=== PATIENT | male | born 1955 | race Caucasian/White ===

== ENCOUNTER 2025-04-22 13:31 | Emergency (ER) | payer MEDICARE, SELFPAY ==
[2025-04-22] VITALS (10 sets, daily range): BP systolic 128–141; BP diastolic 71–97; PULSE 64–72; RESP 11–20; TEMP 36.6–36.8; O2SAT 97–100
--- NOTE | ~2025-04-22 | CT_ITS ---
EXAMINATION: CTA BRAIN/CAROTID DATE: 04/22/2025 15:08 INDICATION: Vertigo TECHNIQUE: Computed tomographic angiography (CTA) of the head and neck was performed with 100 mL Omni paque-350 intravenous contrast. Multiplanar reconstructions and maximum intensity projection 3D-recon structions of the carotid arteries and of the intracranial arteries were created by the technologist on a separate workstation. Precontrast CT of the head was also obtained. Automated exposure control and iterative reconstruction technique were employed.The dose-length product was 2020.75 mGy-cm. COMPARISON: None. FINDINGS: Carotid arteries: Thoracic aorta is normal in caliber with no dissection. Right vertebral artery is dominant. There is no evident atherosclerotic plaque with 0% stenosis of the right and left carotid bulbs relative to no rmal distal artery lumen diameter (NASCET criteria). Mild atelectasis in the visualized upper lungs l ikely related to expiratory phase of imaging. Severe lumbar spondylosis. Head: No acute intracranial hemorrhage, acute infarction or abnormal extra axial fluid collection. There is mild scattered white matter hypoattenuation consistent with chronic small vessel ischemic disease. S ymmetric prominence of the sulci consistent with mild age-appropriate diffuse cerebral volume loss. N o mass/mass effect. No abnormally enhancing brain lesions on the post contrast images. Ventricles are normal and symmetric. Changes of bilateral intraocular lens replacement. The orbits and mastoid air cells are normal. Scattered mild mucosal thickening the paranasal sinuses. Intracranial arteries Right vertebral artery is dominant. There is no hemodynamically significant stenosis in the vertebral , basilar and internal carotid arteries. Both A1 and P1 segments are patent. There are no aneurysms identified. Cerebral arterial arborization appears symmetric. IMPRESSION: 1. No atherosclerotic plaque with 0% stenosis of the right left carotid bulbs relative to normal dist al artery lumen diameter (NASCET criteria). 2. Normal aging brain with mild diffuse volume loss and mild scattered white matter hypoattenuation c onsistent with chronic small vessel ischemic disease. No acute intracranial process. 3. Unremarkable cerebral CT angiogram with no hemodynamic significant stenosis, thrombosis or aneurys m. Reviewed, dictated and finalized at location B. IMPRESSION: 1. No atherosclerotic plaque with 0% stenosis of the right left carotid bulbs r elative to normal distal artery lumen diameter (NASCET criteria). 2. Normal aging brain with mild diffuse volume loss and mild scattered white ma tter hypoattenuation consistent with chronic small vessel ischemic disease. No acute intracranial process. 3. Unremarkable cerebral CT angiogram with no hemodynamic significant stenosis, thrombosis or aneurysm.
--- NOTE | 2025-04-22 14:09 | ECG_ITS ---
Test Date: 2025-04-22 14:44:33 Measurements Intervals [place] Rate: 66 P: 57 NE: 160 QRS: -22 QRSD: 105 T: 10 QT: 437 QTc: 460 Interpretive Statements SINUS RHYTHM INCOMPLETE RIGHT BUNDLE BRANCH BLOCK INFERIOR INFARCT, AGE INDETERMINATE BASELINE ARTIFACT- I, III, AVR, AVL ABNORMAL ECG No previous ECG available for comparison Electronically Signed On 04-22-2025 16:55:19 CDT by Prasanth Torres D.O.
[2025-04-22 14:27] LABS: Basophils Percent Auto 0.4 % (0.2-1.2); Eosinophils Percent Auto 0.6 % (0-4.4); Hematocrit 49.1 % (42.0-52.0); Hemoglobin 16.3 g/dL (14.0-18.0); Immature Granulocyte Absolute 0.05 K/mm3 (0.00-0.031); Immature Granulocyte Percent A 0.7 % (0-0.5); Lymphocytes Absolute Auto 0.96 K/mm3 (0.9-3.2); Lymphocytes Percent Auto 13.4 % (18.3-44.2); Mean Corpuscular HGB Conc 33.2 g/dl (32-36); Mean Corpuscular Hemoglobin 27.6 pg (26-34); Mean Corpuscular Volume 83.1 fl (80-100); Mean Platelet Volume 9.9 fl (7.4-10.4); Monocytes Absolute Auto 0.4 K/mm3 (0.1-0.6); Monocytes Percent Auto 6.1 % (2.6-8.5); Neutrophils Absolute Auto 5.7 K/mm3 (1.3-6.7); Neutrophils Percent Auto 78.8 % (45.5-73.1); Platelet Count Result 153 k/mm3 (150-375); Red Blood Count 5.91 M/mm3 (4.6-6.20); Red Cell Distribution Width 13.5 % (11.5-14.5); White Blood Count 7.2 K/mm3 (4.5-10.0)
[2025-04-22 14:29] LABS: Add Urine Microscopic? NO; Appearance Urine Clear (Clear); Bilirubin Urine Negative (Negative); Blood Urine Negative (Negative); Color Urine Yellow (Yellow); Glucose Urine UA Negative (Negative); Ketones Urine Negative (Negative); Leukocyte Esterase Ur Negative LEU/UL (Negative); Nitrate Urine Negative (Negative); Protein Urine Negative (Negative); Specific Grav Ur 1.018 (1.001-1.035); Urobilinogen Urine 0.2 mg/dL (<2.0); pH Urine 7.5 (5.0-9.0)
[2025-04-22 14:39] LABS: Alanine Aminotransferase 28 U/L (6-50); Albumin Level 4.4 g/dL (3.5-5.1); Alkaline Phosphatase 95 U/L (38-126); Anion Gap 11 mmol/L (4-12); Aspartate Amino Transferase 23 U/L (17-59); Bilirubin,Total 0.8 mg/dL (0.2-1.3); Blood Urea Nitrogen 23 mg/dL (9-20); Calcium 9.4 mg/dL (8.4-10.2); Carbon Dioxide 24 mmol/L (22-30); Chloride 103 mmol/L (98-107); Estimated CRCL calculation 91 ml/min; Estimated Glomerular Filt Rate > 60; Glucose 168 mg/dL (65-110); Lipase 31 U/L (23-300); Potassium 4.8 mmol/L (3.4-5.0); Sodium 138 mmol/L (137-145); Total Protein 7.4 g/dL (6.3-8.2)
[2025-04-22] MEDS: SODIUM CHLORIDE 0.9% IV 1,000 ML 999 ML IV CONT (15:25)
[2025-04-22] MEDS: MECLIZINE HCL 25 MG TABLET PO (15:25)
[2025-04-22 15:31] LABS: Lactic Acid Reflex 1.3 mmol/L (0.7-2.0)
--- OUTSIDE RECORDS SUMMARY | 2025-04-22 15:34 | XMS_ITS | Clinical Summary ---
Author Organization [facility] [address] Address [address] [place] [id number] Care Team Providers Care Human Services Professional Name Role Phone Carlos Hinojosa MD Primary Care Provider Jj Scott MD Unavailable [phone] Cristi Cantu OD Unavailable Marlene Freitas OD Unavailable [phone] Thomas Redman MD Unavailable Allergies Active Allergy Reactions Criticality Noted Date Comments Levofloxacin Pollen Extracts Eye irritation Low 12/29/[address] [facility] For home blood glucose monitoring, 1-3 times per day. E11.65 200 each 3 2 Active peg 400-propylene glycol, PF, 0.4-0.3 % drops Administer into affected eye(s) Active TechLITE Pen Needle 29 gauge x 1/2 needle USE TO INJECT INSULIN 1 TO 4 TIMES DAILY DIRECTED 3 Active blood glucose diagnostic (glucose blood) stripIndications: Type II or unspecified type diabetes mellitus with renal manifestations, uncontrolled(250. 42) ([facility]) For use with blood glucose monitoring, 1-3 times per day. E11.65 200 each 11 3 Active albuterol HFA (Proventil HFA) 90 mcg/actuation inhalerIndication s:Moderate persistent asthma without complication Inhale 2 puffs every 4 (four) hours as needed for wheezing or shortness of breath 6.73 each 4 3 Active escitalopram (LEXAPRO) 20 mg tabletIndications :Major depressive disorder, recurrent, mild Take 1 tablet (20 mg total) by mouth daily 90 tablet 3 4 Active gabapentin (NEURONTIN) 300 mg capsuleIndication s:Spondylosis of lumbar region without myelopathy or radiculopathy Take 1 capsule (300 mg total) by mouth nightly as needed (pain) 30 capsule 1 4 Active atorvastatin (LIPITOR) 40 mg tabletIndications :Type II or unspecified type diabetes mellitus with renal manifestations, uncontrolled(250. 42) (HCC) Take 2 tablets (80 mg total) by mouth daily 180 tablet 5 Active insulin degludec (TRESIBA) 200 unit/mL (3 mL) pen for injection Inject 0.08 mL (16 Units total) under the skin 2 (two) times a day 16 mL 5 Active Active Problems Problem Noted Date Diagnosed Date Encounter for Medicare annual wellness exam 09/07 Assessment & Plan (10/01/2024 9:33 AM ENDOSCOPY SPECIALTY TECHNICIAN): A(n) yearly Medicare Annual Wellness Visit has been performed today. Manjeet Neri is not up to date on screening tests. He is in need of Hepatitis B- screening. He is up to date on needed preventative vaccinations. We discussed healthy lifestyle habits, educational material has been given. Medications reviewed, changes documented as per the medical record and discussed with patient along with risks vs benefits. Specific topics reviewed: drugs, ETOH, and tobacco, importance of regular dental care, importance of regular exercise, importance of varied diet, limit TV, media violence, minimize junk food, and seat belts. Return in 1 year Asthma 08/09/2023 Class 2 severe obesity due t o excess calories with serious comorbidity and body mass index (BMI) of 36.0 to 36.9 in adult 10/04/2022 Assessment & Plan (02/08/2024 8:45 AM CDT): BMI Follow-up includes: nutrition counseling, exercise counseling, and education provided. Assessment & Plan (11/09/2023 9:25 AM ENDOSCOPY SPECIALTY TECHNICIAN): BMI Follow-up includes: nutrition counseling, exercise counseling, and education provided. Assessment & Plan (08/09/2023 9:23 AM CDT): BMI Follow-up includes: nutrition counseling, exercise counseling, and education provided. Assessment & Plan (10/04/2022 12:35 PM ENDOSCOPY SPECIALTY TECHNICIAN): BMI Follow-up includes: nutrition counseling, exercise counseling and education provided. Hyperlipidemia associated with type 2 diabetes jose velarde 10/04/2022 Assessment & Plan (11/09/2023 9:26 AM ENDOSCOPY SPECIALTY TECHNICIAN): A1c today Continuing atorvastatin No change on Tresiba Assessment & Plan (10/04/2022 12:35 PM ENDOSCOPY SPECIALTY TECHNICIAN): Awaiting labs Continuing Tresiba at current dosage, for now Continuing Lexapro, Lipitor as well Type II or unspecified type diabetes mellitus with renal manifestations, uncontrolled(250.42) 02/03/2022 Assessment & Plan (02/03/2022 8:55 AM CDT): BP is controlled Will leave on Tresiba for now; refilled Glucometer and strips ordered as well Will recheck a1c for follow up in 2 months Major depressive disorder, recurrent, mild 02/03 Family history of colon cancer 02/02/2022 Overview (02/02/2022): Added automatically from request for surgery [id number] Cataracts, bilateral 12/29/2021 Colon cancer screening 12/29/2021 Overview (12/29/2021): Added automatically from request for surgery [id number] Encounter for medical examination to establish c are 12/29/2021 Assessment & Plan (08/09/2023 9:26 AM CDT): A(n) yearly Medicare Annual Wellness Visit has been performed today. Manjeet Neri is not up to date on screening tests. He is in need of Diabetic foot exam and Diabetic kidney disease screening. She is not up to date on needed preventative vaccinations; He is in need of Covid-19 (booster). He had the RSV vaccine on 07/19 at [facility]. We discussed healthy lifestyle habits, educational material has been given. Medications reviewed, changes documented as per the medical record and discussed with patient along with risks vs benefits. Return in 3 months Assessment & Plan (12/29/2021 12:19 PM ENDOSCOPY SPECIALTY TECHNICIAN): A initial Medicare Annual Wellness Visit has been performed today. Manjeet Neri is not up to date on screening tests. He is in need of Prostate screening, AAA Screening, hepatitis C screening and Colon cancer screening- these have been ordered. He is not up to date on needed preventative vaccinations Planned for cataract surgery on 01/04 BP is fine today Labs as ordered Set up for colonoscopy Abdominal aortic aneurysm screening ordered as well ([facility]) Anaclitic depression 10/29/2014 Resolved Problems Problem Noted Date Diagnosed Date Resolved Date Lumbar radiculopathy 02/02/2024 024 Neck pain 04/05/2022 02/21/2024 Non-smoker 10/29/2014 02/21/2024 Arthritis 10/29/2014 02/21/2024 Shortness of breath 10/29/2014 12/29/19 22 Osteoarthritis 10/29/2014 02/21/2024 Knee pain 10/02/2012 02/21/2024 Osteoarthritis of shoulder 05/31/2011 0 02/21/2024 Encounters Date Type Department Care Team Description 03/10/2025 Telephone [facility] Primary Care at [address] [id number] Carlos Hinojosa MD Med Refill 02/03/2025 Telephone [facility] Primary Care at [address] [id number] Blanca Bower MA from Last 3 Months Immunizations Immunization Administration Dates Next Due Influenza, Quad, Adjuvantate d, Intramuscular 06/28/2023,08/16/2022,08/10/2021 Influenza, Quadrivalent, Melly l Culture-based MDCK, Preservative Free, Antibiotic Free, Intramuscular 08/20/2018,09/11/2017 Influenza, Quadrivalent, Spl it, Preservative Free, Intramuscular 08/25/2020,09/01/2016 Influenza, Trivalent, Adjuva nted, Intramuscular 08/20/2024,08/29/2019 Influenza, Trivalent, IM (MDV) 08/25/2014,2012,10/17/2012 Influenza, Trivalent, Preser vative Free, Intramuscular 08/13/2015 Influenza, Unspecified 07/12/2023,08/16/2022 Curb Call Sars-Cov-2 Bivalent V accination (12+ YRS) 08/16/2022 Pneumococcal Conjugate PCV 13 09/06/2015 Pneumococcal Polysaccharide PPV23 08/25/2020 RSV Vaccine, Pref, Recombina nt, Subunit, Adjuvanted, PF, IM (Arexvy) 07/05/2023 Tdap 07/12/2023,06/28/2023 ZOSTER LIVE 08/26/2014 ZOSTER Recombinant 12/19/2023,06/28/2023 Surgical History Surgery Date Site/Laterality Comments SD ARTHROSCOPY KNEE DIAGNOSTIC W/WO SYNOVIAL BX SPX 11/06/1979 - 11/05/1980 Arthroscopy Knee Left - (Added by TW Conv) SD ARTHROSCOPY KNEE DIAGNOSTIC W/WO SYNOVIAL BX SPX Arthroscopy Knee Right - (Added by TW Conv) CATARACT EXTRACTION COLONOSCOPY 2013 COLONOSCOPY 06/10/2022 Medical History Medical History Date Comments Depression Pneumonia History of COVID-19 2020 2ce Cataracts, bilateral 12/29/2021 Asthma Type 2 diabetes mellitus (HCC) Family History Medical History Relation Name Comments Dementia Father Parkinsonism Father Heart disease Maternal Grandfather Hyperlipidemia Maternal Grandfather Diabetes Maternal Grandmother Diabetes Mother chronic leukemia Mother Diabetes Other 1 Family history of diabetes mellitus - (Added by TW Conv) Colon cancer Other 2 Colon cancer - (Added by TW Conv) Colon cancer Paternal Grandfather Frontotemporal dementia Paternal Grandmother Diabetes Sister ESKD Requiring Dialysis Sister Myasthenia gravis Sister Relation Name Status Comments Father Maternal Grandfather Maternal Grandmother Mother Other 1 Other 2 Paternal Grandfather Paternal Grandmother Sister Social History Tobacco Use Types Packs/Day Years Used Date Smoking Tobacco: Never Cigarettes St arted: 2006 Smokeless Tobacco: Never Comments:Has about 12-15 cig ars a year AUDIT-C Answer Date Recorded Q1: How often do you have a drink containing alc ohol? 2-3 times a week 11/09/2023 Q2: How many drinks containi ng alcohol do you have on a typical day when you are drinking? 1 or 2 11/09/2023 Q3: How often do you have si x or more drinks on one occasion? Never 11/09/2023 PHQ-2 Answer Date Recorded PHQ-2 Total Score (If total score is 3 or more points, staff should administer the PHQ-9) 4 10/01/2024 PHQ-9 Answer Date Recorded PHQ-9 Total Score 10 10/01/2024 Education Answer Date Recorded What is the highest level of school you have completed or the highest degree you have received? 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 Not on file Not on file Not on file Obstetrics History Last Filed Vital Signs Vital Sign Reading Time Taken Comments Blood Pressure 130/80 10/01/2024 9:02 AM ENDOSCOPY SPECIALTY TECHNICIAN Pulse 83 10/01/2024 9:02 AM ENDOSCOPY SPECIALTY TECHNICIAN Temperature 36.1 C (96.9 F) 10/01/2024 9:02 AM ENDOSCOPY SPECIALTY TECHNICIAN Respiratory Rate 18 10/01/2024 9:02 AM ENDOSCOPY SPECIALTY TECHNICIAN Oxygen Saturation 96% 10/01/2024 9:02 AM ENDOSCOPY SPECIALTY TECHNICIAN Inhaled Oxygen Concentration - - Weight 120.7 kg (266 lb) 10/01/2024 9:02 AM ENDOSCOPY SPECIALTY TECHNICIAN Height 185.4 cm (6' 1) 10/01/2024 9:02 AM ENDOSCOPY SPECIALTY TECHNICIAN Body Mass Index 35.09 10/01/2024 9:02 AM ENDOSCOPY SPECIALTY TECHNICIAN Plan of Treatment Health Maintenance Due Date Last Done Comments Hepatitis B Screening 1973 Covid-19 Vaccine (2023-12 5 season) 2024 08/16/2022, 02/19/2022, 08/10/2021, Additional history exists Foot Exam 08/09/2024 08/09/2023, 06/30/2022 Well Visit 65+ 08/09/2024 08/09/2023, 12/29/2021 Dilated Eye Exam 10/11/2024 10/11/2023 Hemoglobin A1C 03/31/2025 10/01/2024, 07/0 06/2024, 02/08/2024, Additional history exists Albumin Creatinine Ratio, Urine 10/01/2025 10/01/2024, 08/09/2023, 06/30/2022 Depression Screening 10/01/2025 10/01/2024, 10/01/2024, 05/13/2024, Additional history exists Fall Risk Assessment 10/01/2025 10/01/2024, 05/13/2024, 02/08/2024, Additional history exists Lipid Panel 10/01/2025 10/01/2024, 04/0 02/2024, 04/18/2023, Additional history exists eGFR 10/01/2025 10/01/2024, 04/0 02/2024, 04/18/2023, Additional history exists Colon Cancer Screening-Colonoscopy 05/30/2032 05/30/2022 DTaP/Tdap/Td Vaccine (3 - Td or Tdap) 07/12/2033 07/12/2023, 06/28/2023 Pneumococcal vaccine 65+ Completed 08/25/2020, 1111/2014 Hepatitis C Screening Completed 12/29/2021 Abdominal Aortic Aneurysm (A AA) Screen Completed 01/26/2022 Prostate Cancer Screening-PSA Discontinued 04/18/2023, 12/29/2021 Zoster Vaccine Completed 12/19/2023, 06/07, 08/26/2014 Influenza Vaccine Completed 08/20/2024, , 06/28/2023, Additional history exists Procedures Procedure Name Priority Date/Time Associated Diagnosis Comments EGFR Routine 10/01/2024 9:45 AM ENDOSCOPY SPECIALTY TECHNICIAN Hyperlipidemia associated with type 2 diabetes mellitus (HCC) HEMOGLOBIN A1C Routine 10/01/2024 9:45 AM ENDOSCOPY SPECIALTY TECHNICIAN Hyperlipidemia associated with type 2 diabetes mellitus (HCC) LIPID PANEL Routine 10/01/2024 9:45 AM ENDOSCOPY SPECIALTY TECHNICIAN Hyperlipidemia associated with type 2 diabetes mellitus (HCC) ALBUMIN CREATININE RATIO, URINE Routine 10/01/2024 9:45 AM ENDOSCOPY SPECIALTY TECHNICIAN Hyperlipidemia associated with type 2 diabetes mellitus (HCC) HM DIABETES EYE EXAM Routine 10/11/2023 PSA SCREEN Routine 04/18/2023 12:00 PM CDT Screening for prostate cancer COLONOSCOPY 05/30/2022 8:28 AM CDT ABDOMINAL AORTIC ANEURYSM SCREENING Schedule Routine, Read Routine (OP Routine) 01/26/2022 9:02 AM CDT Screening for AAA (abdominal aortic aneurysm) Screening for abdominal aortic aneurysm HEPATITIS C ANTIBODY Routine 12/29/2021 11:53 AM ENDOSCOPY SPECIALTY TECHNICIAN Encounter for hepatitis C screening test for low risk patient from Last 3 Months or Most Recently Relevant to Health Maintenance Results * eGFR (10/01/2024 9:45 AM ENDOSCOPY SPECIALTY TECHNICIAN) eGFR 68 >=60 mL/min/1. 73 m2 Comment: Interpretive Data Reference Interval Normal >/= 90 mL/min/1.73m2 Mildly decreased* 60 - 89 mL/min/1.73m2 Mildly to moderately decreased 45 - 59 mL/min/1.73m2 Moderately to severely decreased 30 - 44 mL/min/1.73m2 Severely decreased 15 - 29 mL/min/1.73m2 Kidney Failure < 15 mL/min/1.73m2 *Relative to young adult level Estimated glomerular filtration rate is determined by the 2020 CKD-EPI equation recommended by the National Kidney Foundation (A Unifying Approach to GFR Estimation: Recommendations of the NKF-ASK Task Force on Reassessing the Inclusion of Race in Diagnosing Kidney Disease, JASN 202). The CKD-EPI equation should not be used for patients with unstable renal function and has not been validated in children and those over 70. Current interpretive data was last reviewed 2021. Blood 10/01/2024 9:45 AM ENDOSCOPY SPECIALTY TECHNICIAN 10/01/2024 7:17 PM ENDOSCOPY SPECIALTY TECHNICIAN Carlos Hinojosa MD LAB BLOOD ORDERABLES Final Result [facility] [address] [address] [facility] [place] [address] * Albumin Creatinine Ratio, Urine (10/01/2024 9:45 AM ENDOSCOPY SPECIALTY TECHNICIAN) [facility] Albumin Ur <12.0 mg/L Comment: Interpretive Data No reference range established. Current interpretive data was last revised 2019. Creatinine Ur 78.5 mg/dL [facility] Comment: Interpretive Data No reference range established. Current interpretive data was last revised 2019. Albumin Creatinine Ratio, Ur <15 1 - 29 mg/g [facility] Urine 10/01/2024 9:45 AM ENDOSCOPY SPECIALTY TECHNICIAN 10/01/2024 7:06 PM ENDOSCOPY SPECIALTY TECHNICIAN Result [facility] Carlos Hinojosa MD LAB URINE ORDERABLES Final Result Performing Organization Address [facility] Phone Number SURY [address] [place] [address] * (ABNORMAL) Hemoglobin A1c (10/01/2024 9:45 AM ENDOSCOPY SPECIALTY TECHNICIAN) [facility] Hgb A1C 6.8(H) 4.0 - 5.6 % Estimated Average Glucose 148 mg/dL [facility] Comment: The ADA recommends reporting an estimated Average Glucose (eAG) with all Hemoglobin A1c results using the equation derived from a study of 507 normal and diabetic adults. Minority populations were underrepresented and children were not included. (Diabetes Care 31:7017-8923, 2008). The eAG is not equivalent to a fasting glucose. Blood 10/01/2024 9:45 AM ENDOSCOPY SPECIALTY TECHNICIAN 10/01/2024 7:06 PM ENDOSCOPY SPECIALTY TECHNICIAN Carlos Hinojosa MD LAB BLOOD ORDERABLES Final Result Performing Organization Address [facility] Co de Phone Number SURY [address] [address] [facility] [place] [address] * (ABNORMAL) Lipid panel (10/01/2024 9:45 AM ENDOSCOPY SPECIALTY TECHNICIAN) Cholesterol 180 30 - 199 mg/dL Comment: Interpretive Data Ages < or = 19 years Acceptable: <170 mg/dL Borderline high: 170-199 mg/dL High: >or= 200 mg/dL Ages > or = 20 years Desirable: <200 mg/dL Borderline high: 200-239 mg/dL High: >or= 240 mg/dL Literature References: 1. Expert Panel on Integrated Guidelines for Cardiovascular Health and Risk Reduction in Children and Adolescents. Pediatrics 2011;128:S213 2. NCEP Expert Panel. Circulation 2004;110:227 Current Interpretive Data was last revised on 2018. Triglycerides 230(H) <=149 mg/dL [facility] Comment: Interpretive Data Ages < or = 9 years Acceptable: <75 mg/dL Borderline high: 75-99 mg/dL High: >or= 100 mg/dL Ages 10 to 20 years Acceptable: <90 mg/dL Borderline high: 90-129 mg/dL High: >or= 130 mg/dL Ages > or = 20 years Desirable: <150 mg/dL Borderline high: 150-199 mg/dL High: 200-499 mg/dL Very high: >or= 499 mg/dL Literature References: 1. Expert Panel on Integrated Guidelines for Cardiovascular Health and Risk Reduction in Children and Adolescents. Pediatrics 2011;128:S213 2. NCEP Expert Panel. Circulation 2004;110:227 Current Interpretive Data was last revised on 2018. HDL 40 >=40 mg/dL [facility] Comment: Interpretive Data Ages < or = 19 years Acceptable: >45 mg/dL Borderline low: 40-45 mg/dL Low: <40 mg/dL Ages > or = 20 years Desirable: >or= 60 mg/dL Low: <40 mg/dL Literature References: 1. Expert Panel on Integrated Guidelines for Cardiovascular Health and Risk Reduction in Children and Adolescents. Pediatrics 2011;128:S213 2. NCEP Expert Panel. Circulation 2004;110:227 Current Interpretive Data was last revised on 2018. LDL, calculated 101 <=129 mg/dL [facility] Comment: Interpretive Data Ages < or = 19 years Acceptable: <110 mg/dL Borderline high: 110-129 mg/dL High: >or= 130 mg/dL Ages > or = 20 years Optimal: <100 mg/dL Near optimal: 100-129 mg/dL Borderline high: 130-159 mg/dL High: >160 mg/dL Calculated using the Carlos LDL-C estimating equation. This equation was implemented on 2024. Prior to this date LDL-C was estimated using the Friedewald equation. Literature References: 1. Expert Panel on Integrated Guidelines for Cardiovascular Health and Risk Reduction in Children and Adolescents. Pediatrics 2011;128:S213 2. NCEP Expert Panel. Circulation 2004;110:227 3. Carlos Berkowitz et al. LION Cardiol. 2019March 06;5(5):540-548. doi: 10.1001/jamacardio.2020.0013 Current Interpretive Data was last revised on 2024. Non-HDL Cholesterol 140 mg/dL [facility] [place] Comment: Interpretive Data Ages < or = 19 years Acceptable: <120 mg/dL Borderline high: 120-144 mg/dL High: >145 mg/dL Ages > or = 20 years When triglycerides are >200 mg/dL, Non-HDL cholesterol is a secondary target of therapy with treatment goals that are 30 mg/dL greater than the LDL cholesterol target. Literature References: 1. Expert Panel on Integrated Guidelines for Cardiovascular Health and Risk Reduction in Children and Adolescents. Pediatrics 2011;128:S213 2. NCEP Expert Panel. Circulation 2004;110:227 Current Interpretive Data was last revised on 2018. Chol/HDL ratio 4 [facility] [place] Blood 10/01/2024 9:45 AM ENDOSCOPY SPECIALTY TECHNICIAN 10/01/2024 7:06 PM ENDOSCOPY SPECIALTY TECHNICIAN Carlos Hinojosa MD LAB BLOOD ORDERABLES Final Result [facility] [place] [id number] [address] [place] [address] * DIABETES EYE EXAM (10/11/2023) SCRIBED DIABETIC DILATED EYE EXAM Normal Comment:No diabetic retinopa thy Historical Provider HEALTH MAINTENANCE Final Result * PSA screen (04/18/2023 12:00 PM CDT) PSA-Total 0.57 <=5.40 ng/mL [facility] [place] Comment: Interpretive Data AGE SEX REFERENCE INTERVAL 0 minutes-150 years Female None 0 minutes-49 years Male None 50-59 years Male 0-3.90 60-69 years Male 0-5.40 70-79 years Male 0-6.20 80-150 years Male 0-6.20 The Breezy PSA Total assay procedure was used. Results from different manufacturers or methods may not be comparable. Serial testing should be performed using the same method. Current interpretive data last revised 22. Blood 04/18/2023 12:0 0 PM CDT 04/18/2023 2:16 PM CDT us Carlos Hinojosa MD LAB BLOOD ORDERABLES Final Result [facility] [address] [address] [place] [address] * COLONOSCOPY (05/30/2022 8:28 AM CDT) Anatomical Region Laterality Modality Other Narrative Procedure Note Madalyn Moreira MD - 05/30/2022 8:28 AM CDT [facility] Patient Name: Manjeet Neri Procedure Date: 05/30/2022 8:28 AM Date of : 1955 Admit Type: Outpatient Age: 67 Gender: Male Attending MD: Madalyn Moreira M.D. Room: [facility] ENDOSCOPY ROOM 1 Note Status: Finalized Patient Profile: This is a 67 year old male. Grandfather and uncleboth had colon cancer. His sister had colon polyps. Screening colonoscopy. Procedure: Colonoscopy Ind[facility] Family history of colorectal cancer in multiple 2nd degree relatives, Last colonoscopy: 2013 Referring MD: Carlos Hinojosa M.D. Providers: Madalyn Moreira M.D. Impression: - One 7 mm polyp in the cecum, removed with a jumbo cold forceps. Resected and retrieved. - Two 8 to 10 mm polyps in the transverse colon, removed with a cold snare. Resected and retrieved. Clip (MR conditional) was placed. Clipmanufacturer: [employer]. - Internal hemorrhoids. Recommendation: - Await pathology results. - Repeat colonoscopy in 3 years for screeningpurposes. - Continue present medications. Medicines: Monitored Anesthesia Care Complications: No immediate complications. Estimated Blood Loss: Estimated blood loss: none. Procedure: Pre-Anesthesia Assessment: - Prior to the procedure, a History and Physicalwas performed, and patient medications and allergieswere reviewed. The patient's tolerance of previous anesthesia was also reviewed. The risks andbenefits of the procedure and the sedation options and risks were discussed with the patient. All questions were answered, and informed consent was obtained. Prior Anticoagulants: The patient has taken noanticoagulant or antiplatelet agents. ASA Grade Assessment: II -A patient with mild systemic disease. After reviewing the risks and benefits, the patient was deemed in satisfactory condition to undergo the procedure. The benefits, risks and alternatives of theprocedure and sedation were discussed and informed consentwas obtained. All questions were answered. Please referto the signed informed consent document in the medical record. The bowel preparation used was Miralax and bisacodyl tablets via split dose instruction. The scope was passed under direct vision. The Pediatric Colonoscope [id number]-[id number] was introducedthrough the anus and advanced to the the cecum, identifiedby appendiceal orifice and ileocecal valve. Thequality of the bowel preparation was good. Bowel prep was administered using a split dose. Findings: The perianal and digital rectal examinations were normal. The appendiceal orifice appeared normal. The terminal ileum was intubated and appeared normal. A 7 mm polyp was found in the cecum. The polyp was sessile. The polyp was removed with a jumbo cold forceps. Resection and retrieval were complete. Two sessile polyps were found in the transverse colon. The polypswere 8 to 10 mm in size. These polyps were removed with a cold snare.Resection and retrieval were complete. To prevent bleeding after thepolypectomy of the proximal larger polyp, one hemostatic clip was successfully placed (MR conditional). Clip manufacturer agent: [employer]. Therewas no bleeding at the end of the procedure. The rectum, sigmoid colon and descending colon appeared normal. One diverticulum noted in the descending colon. Internal hemorrhoids were found during retroflexion. The hemorrhoids were small. Electronically signed by Madalyn Moreira M.D. Madalyn Moreira M.D. 05/30/2022 9:50:21 AM Number of Addenda: 0 Note Initiated On: 05/30/2022 8:28 AM Procedure Code(s): --- Professional --- 32653, Colonoscopy, flexible; with removal of tumor(s), polyp(s), or other lesion(s) by snare technique 84954, 59, Colonoscopy, flexible; with biopsy, single or multiple Diagnosis Code(s): --- Professional --- Z80.0, Family history of malignant neoplasm of digestive organs K64.8, Other hemorrhoids D12.0, Benign neoplasm of cecum D12.3, Benign neoplasm of transverse colon (hepatic flexure orsplenic flexure) CPT copyright 2020 [employer]. All rights reserved. The codes documented in this report are preliminary and upon dental assisting instructor reviewmay be revised to meet current compliance requirements. Recognized by the [place] [employer] for promoting quality in endoscopy Madalyn Moreira MD ENDOSCOPY PROCEDURES Final Result * US Abdominal Aortic Aneurysm Screening (01/26/2022 9:02 AM CDT) Anatomical Region Laterality Modality Abdomen Ultrasound 01/26/2022 6:17 PM CDT Narrative 01/26/2022 6:18 PM CDT EXAM DESCRIPTION: US ABDOMINAL AORTIC ANEURYSM SCREENING REASON FOR STUDY: AAA TECHNIQUE: Grayscale images acquired of the aorta and stored on PACS. Selected color Doppler and spectral images recorded. COMPARISON: None available FINDINGS: AORTIC CALIBER MAXIMAL PROXIMAL: Not visualized due to surrounding bowel gas. Cm. MID: 2.6 x 2.7 cm. DISTAL: 1.8 x 2.1 cm. ILIAC DIAMETER RIGHT: 1 x 1.1 cm. LEFT: 1.1 x 1.3 cm. OTHER: No other significant finding. IMPRESSION: No evidence of abdominal aortic aneurysm. THIS IS AN ELECTRONICALLY VERIFIED FINAL REPORT 01/26/2022 6:18 PM - Electronically signed by Munir Babcock M.D. AT: AT Report ID: [id number] Reading Location: [id number] Procedure Note Munir Babcock MD - 01/26/2022 EXAM DESCRIPTION: US ABDOMINAL AORTIC ANEURYSM SCREENING REASON FOR STUDY: AAA TECHNIQUE: Grayscale images acquired of the aorta and stored on PACS.Selected color Doppler and spectral images recorded. COMPARISON: None available FINDINGS: AORTIC CALIBER MAXIMAL PROXIMAL: Not visualized due to surrounding bowel gas. Cm. MID: 2.6 x 2.7 cm. DISTAL: 1.8 x 2.1 cm. ILIAC DIAMETER RIGHT: 1 x 1.1 cm. LEFT: 1.1 x 1.3 cm. OTHER: No other significant finding. IMPRESSION: No evidence of abdominal aortic aneurysm. THIS IS AN ELECTRONICALLY VERIFIED FINAL REPORT 01/26/2022 6:18 PM - Electronically signed by Munir Babcock M.D. AT: AT Report ID: [id number] Reading Location: [id number] Carlos Hinojosa MD IMG US PROCEDURES Final Res ult * Hepatitis C antibody (12/29/2021 11:53 AM ENDOSCOPY SPECIALTY TECHNICIAN) Hep C Ab Nonreactive Nonreactive [facility] [place] Comment: Interpretive Data Nonreactive: Antibodies to HCV not detected. Does NOT exclude the possibility of recent exposure to HCV. Equivocal: Equivocal for HCV antibodies. Supplemental molecular testing will be automatically performed to determine infection status in accordance with current CDC screening recommendations. Reactive: Positive for HCV antibodies. This may represent current or past HCV infection. Supplemental molecular testing will be automatically performed to determine current infection status in accordance with current CDC screening recommendations. Interpretive data was last revised on 2020. Blood 12/29/2021 11:5 3 AM ENDOSCOPY SPECIALTY TECHNICIAN 12/29/2021 6:03 PM ENDOSCOPY SPECIALTY TECHNICIAN Carlos Hinojosa MD LAB MICROBIOLOGY - GENERAL ORDERABLES Final Result Performing Organization Address City/State/ZIP Co pr Phone Number SURY [address] [address] Department of Laboratories [place] [phone] from Last 3 Months or Most Recently Relevant to Health Maintenance Insurance MEDICARE MEDICARE [facility] MEDICARE SUPPLEMENT Advance Directives For more information, please contact: [phone] * Full Code (Latest Code Status on File) Date Activated Date Inactivated Comments 05/30/2022 8:25 AM 05/30/2022 2:43 PM * Full Code Date Activated Date Inactivated Comments 05/30/2022 8:25 AM 05/30/2022 8:25 AM Care Teams Human Services Professional Relationship Specialty Start Date End Date Carlos Hinojosa MD [address] [place] [address] PCP - General Family Medicine 12/20/21 Jj Scott MD [address] [place] [address] Referring Physician Ophthalmology 12/29/21 Cristi Cantu, OD [address] [place] [address] Optometry 10/04/22 Marlene Freitas, OD [address] [place] [address] Optometry 11/09/23 Thomas Redman MD [address] [place] [address] Consulting Physician Anesthesiology 02/08/24
--- OUTSIDE RECORDS SUMMARY | 2025-04-22 15:34 | XMS_ITS | Referral Summary ---
Author Organization [facility] [place] [address] Address [address] [place] [id number] Care Team Providers Care Ceramics Technician Name Role Phone Carlos Hinojosa MD Primary Care Provider Jj Scott MD Unavailable Cristi Cantu OD Unavailable Marlene Freitas OD Unavailable [phone] Thomas Redman MD Unavailable Encounters Date Type Department Care Team Description 03/10/2025 Telephone [facility] Primary Care at [address] [phone] Carlos Hinojosa MD Med Refill 02/03/2025 Telephone [facility] Medical [facility] Primary Care at [address] [phone] Blanca Bower MA from Last 3 Months Allergies Active Allergy Reactions Criticality Noted Date Comments Levofloxacin Pollen Extracts Eye irritation Low 12/29/2021 Ragweed Medications lancets [facility] [place] For home blood glucose monitoring, 1-3 times [...] diabetes mellitus with renal manifestations, uncontrolled(250. 42) ([facility]) For use with blood glucose [...] 09/07 Assessment & Plan (10/01/2024 9:33 AM COUNSELOR DORMITORY): A(n) yearly Medicare Annual Wellness Visit has [...] provided. Assessment & Plan (11/09/2023 9:25 AM COUNSELOR DORMITORY): BMI Follow-up includes: nutrition counseling, exercise counseling, and education provided. Assessment & Plan (08/09/2023 9:23 AM CDT): BMI Follow-up includes: nutrition counseling, exercise counseling, and education provided. Assessment & Plan (10/04/2022 12:35 PM COUNSELOR DORMITORY): BMI Follow-up includes: nutrition counseling, exercise counseling and education provided. Hyperlipidemia associated with type 2 diabetes jose velarde 10/04/2022 Assessment & Plan (11/09/2023 9:26 AM COUNSELOR DORMITORY): A1c today Continuing atorvastatin No change on Tresiba Assessment & Plan (10/04/2022 12:35 PM COUNSELOR DORMITORY): Awaiting labs Continuing Tresiba at current dosage, [...] (02/02/2022): Added automatically from request for surgery [id number] Cataracts, bilateral 12/29/2021 Colon cancer screening 12/29/2021 Overview (12/29/2021): Added automatically from request for surgery [id number] Encounter for medical examination to establish c [...] had the RSV vaccine on 07/19 at [facility]. We discussed healthy lifestyle habits, educational material has been given. Medications reviewed, changes documented as per the medical record and discussed with patient along with risks vs benefits. 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 Resolved Problems Problem Noted Date Diagnosed Date Resolved Date Lumbar radiculopathy 02/02/2024 024 Neck pain 04/05/2022 02/21/2024 Non-smoker 10/29/2014 02/21/2024 Arthritis 10/29/2014 02/21/2024 Shortness of breath 10/29/2014 12/29/19 22 Osteoarthritis 10/29/2014 02/21/2024 Knee pain 10/02/2012 02/21/2024 Osteoarthritis of shoulder 05/31/2011 0 02/21/2024 Immunizations Immunization Administration Dates Next Due Influenza, Quad, Adjuvantate d, Intramuscular 06/28/2023,08/16/2022,08/10/2021 Influenza, Quadrivalent, Melly l Culture-based MDCK, Preservative Free, Antibiotic Free, Intramuscular 08/20/2018,09/11/2017 Influenza, Quadrivalent, Spl it, Preservative Free, Intramuscular 08/25/2020,09/01/2016 Influenza, Trivalent, Adjuva nted, Intramuscular 08/20/2024,08/29/2019 Influenza, Trivalent, IM (MDV) 08/25/2014,2012,10/17/2012 Influenza, Trivalent, Preser vative Free, Intramuscular 08/13/2015 Influenza, Unspecified 07/12/2023,08/16/2022 Pfizer Sars-Cov-2 Bivalent V accination (12+ YRS) 08/16/2022 Pneumococcal Conjugate PCV 13 09/06/2015 Pneumococcal Polysaccharide PPV23 08/25/2020 RSV Vaccine, Pref, Recombina nt, Subunit, Adjuvanted, PF, IM (Arexvy) 07/05/2023 Tdap 07/12/2023,06/28/2023 ZOSTER LIVE 08/26/2014 ZOSTER Recombinant 12/19/2023,06/28/2023 Social History Tobacco Use Types Packs/Day Years Used Date Smoking Tobacco: Never Cigarettes St arted: 2005 Smokeless Tobacco: Never Comments:Has about 12-15 cig [...] on file Legal Sex Male 8:47 AM COUNSELOR DORMITORY Gender Identity Not on file Sexual Orientation Not on file 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 Not on file Not on file Not on file Last Filed Vital Signs Vital Sign Reading Time Taken Comments Blood Pressure 130/80 10/01/2024 9:02 AM COUNSELOR DORMITORY Pulse 83 10/01/2024 9:02 AM COUNSELOR DORMITORY Temperature 36.1 C (96.9 F) 10/01/2024 9:02 AM COUNSELOR DORMITORY Respiratory Rate 18 10/01/2024 9:02 AM COUNSELOR DORMITORY Oxygen Saturation 96% 10/01/2024 9:02 AM COUNSELOR DORMITORY Inhaled Oxygen Concentration - - Weight 120.7 kg (266 lb) 10/01/2024 9:02 AM COUNSELOR DORMITORY Height 185.4 cm (6' 1) 10/01/2024 9:02 AM COUNSELOR DORMITORY Body Mass Index 35.09 10/01/2024 9:02 AM COUNSELOR DORMITORY Plan of Treatment Not on file Procedures Procedure Name Priority Date/Time Associated Diagnosis Comments EGFR Routine 10/01/2024 9:45 AM COUNSELOR DORMITORY Hyperlipidemia associated with type 2 diabetes mellitus (HCC) HEMOGLOBIN A1C Routine 10/01/2024 9:45 AM COUNSELOR DORMITORY Hyperlipidemia associated with type 2 diabetes mellitus (HCC) LIPID PANEL Routine 10/01/2024 9:45 AM COUNSELOR DORMITORY Hyperlipidemia associated with type 2 diabetes mellitus (HCC) ALBUMIN CREATININE RATIO, URINE Routine 10/01/2024 9:45 AM COUNSELOR DORMITORY Hyperlipidemia associated with type 2 diabetes mellitus (HCC) DIABETES EYE EXAM Routine 10/11/2023 PSA SCREEN Routine 04/18/2023 12:00 PM CDT Screening for prostate cancer COLONOSCOPY 05/30/2022 8:28 AM CDT US ABDOMINAL AORTIC ANEURYSM SCREENING Schedule Routine, Read Routine (OP Routine) 01/26/2022 9:02 AM CDT Screening for AAA (abdominal aortic aneurysm) Screening for abdominal aortic aneurysm HEPATITIS C ANTIBODY Routine 12/29/2021 11:53 AM COUNSELOR DORMITORY Encounter for hepatitis C screening test for low risk patient from Last 3 Months or Most Recently Relevant to Health Maintenance Results * eGFR (10/01/2024 9:45 AM COUNSELOR DORMITORY) eGFR 68 >=60 mL/min/1. 73 m2 Comment: [...] of Race in Diagnosing Kidney Disease, JASN 2020). The CKD-EPI equation should not be used for patients with unstable renal function and has not been validated in children and those over 70. Current interpretive data was last reviewed 2021. Blood 10/01/2024 9:45 AM COUNSELOR DORMITORY 10/01/2024 7:17 PM COUNSELOR DORMITORY Carlos Hinojosa MD LAB BLOOD ORDERABLES Final Result Performing Organization Address [facility] Phone Number SURY [address] Department [place] [address] * Albumin Creatinine Ratio, Urine (10/01/2024 9:45 AM COUNSELOR DORMITORY) Albumin Ur <12.0 mg/L Comment: Interpretive Data No reference range established. Current interpretive data was last revised 2019. Creatinine Ur 78.5 mg/dL [facility] [place] Comment: Interpretive Data No reference range established. Current interpretive data was last revised 2019. Albumin Creatinine Ratio, Ur <15 1 - 29 mg/g [facility] [place] Urine 10/01/2024 9:45 AM COUNSELOR DORMITORY 10/01/2024 7:06 PM COUNSELOR DORMITORY Carlos Hinojosa MD LAB URINE ORDERABLES Final Result Performing Organization Address City/State/[facility] de Phone Number [place] [phone] Department [place] [address] * (ABNORMAL) Hemoglobin A1c (10/01/2024 9:45 AM COUNSELOR DORMITORY) Hgb A1C 6.8(H) 4.0 - 5.6 % Estimated Average Glucose 148 mg/dL [facility] [place] Comment: The ADA recommends reporting an estimated Average Glucose (eAG) with all Hemoglobin A1c results using the equation derived from a study of 507 normal and diabetic adults. Minority populations were underrepresented and children were not included. (Diabetes Care 31:7738-9677, 2008). The eAG is not equivalent to a fasting glucose. Blood 10/01/2024 9:45 AM COUNSELOR DORMITORY 10/01/2024 7:06 PM COUNSELOR DORMITORY Carlos Hinojosa MD LAB BLOOD ORDERABLES Final Result Performing Organization Address [facility] Phone Number [place] [phone] [place] [address] * (ABNORMAL) Lipid panel (10/01/2024 9:45 AM COUNSELOR DORMITORY) Pathologist [facility] Cholesterol 180 30 - 199 mg/dL Comment: [...] on 2018. Triglycerides 230(H) <=149 mg/dL [facility] [place] Comment: Interpretive Data Ages [...] on 2018. HDL 40 >=40 mg/dL [facility] [place] Comment: Interpretive Data Ages [...] 2018. LDL, calculated 101 <=129 mg/dL [facility] [place] Comment: Interpretive Data Ages [...] NCEP Expert Panel. Circulation 2004;110:227 3. Carlos Felix al. LION Cardiol. 2020 March 06;5(5):540-548. doi: 10.1001/jamacardio.2020.0013 Current Interpretive Data was [...] revised on 2018. Chol/HDL ratio 4 [facility] Blood 10/01/2024 9:45 AM COUNSELOR DORMITORY 10/01/2024 7:06 PM COUNSELOR DORMITORY Carlos Hinojosa MD LAB BLOOD ORDERABLES Final Result Performing Organization Address City/[facility] Co de Phone Number [place] [phone] [place] [address] * DIABETES EYE EXAM (10/11/2023) SCRIBED DIABETIC DILATED EYE EXAM Normal Comment:No diabetic retinopa thy Historical Provider HEALTH MAINTENANCE Final Result * PSA screen (04/18/2023 12:00 PM CDT) PSA-Total 0.57 <=5.40 ng/mL SURY Comment: Interpretive Data AGE SEX REFERENCE INTERVAL [...] 0 PM CDT 04/18/2023 2:16 PM CDT Result [facility] Carlos Hniojosa MD LAB BLOOD ORDERABLES Final Result Performing Organization Address City/[facility] Co de Phone Number SURY [address] [address] [place] [address] * COLONOSCOPY (05/30/2022 8:28 AM CDT) Anatomical Region Laterality Modality Other Narrative Procedure Note Madalyn Moreira MD - 05/30/2022 8:28 AM CDT Rust Patient Name: Manjeet Neri Procedure Date: 05/30/2022 8:28 AM Date of : 1955 Admit Type: Outpatient Age: 67 Gender: Male Attending MD: Madalyn Moreira M.D. Room: [facility] ENDOSCOPY ROOM 1 Note Status: Finalized Patient Profile: This is a 67 year old male. Grandfather and uncleboth had colon cancer. His sister had colon polyps. Screening colonoscopy. Procedure: Colonoscopy Indications: [facility]: Family history of colorectal cancer in multiple [...] retrieved. Clip (MR conditional) was placed. Clipmanufacturer: [employer]. - Internal hemorrhoids. Recommendation: - Await pathology [...] under direct vision. The Pediatric Colonoscope [id number]-H190L [id number] was introducedthrough the anus and advanced to [...] clip was successfully placed (MR conditional). Clip credit control administrator: [employer]. Therewas no bleeding at the end of the procedure. The rectum, sigmoid colon and descending colon appeared normal. One diverticulum noted in the descending colon. Internal hemorrhoids were found during retroflexion. The hemorrhoids were small. Electronically signed by Madalyn Moreira M.D. Madalyn Moreira M.D. 05/30/2022 9:50:21 AM Number of Addenda: 0 Note Initiated On: 05/30/2022 8:28 AM Procedure Code(s): --- Professional --- 79298, Colonoscopy, flexible; with removal of tumor(s), polyp(s), or other lesion(s) by snare technique 28915, 59, Colonoscopy, flexible; with biopsy, single or multiple Diagnosis Code(s): --- Professional --- Z80.0, Family history of malignant neoplasm of digestive organs K64.8, Other hemorrhoids D12.0, Benign neoplasm of cecum D12.3, Benign neoplasm of transverse colon (hepatic flexure orsplenic flexure) CPT copyright 2020 [employer]. All rights reserved. The codes documented in this report are preliminary and upon label coder reviewmay be revised to meet current compliance requirements. Recognized by the [employer] for promoting quality [...] Munir Babcock M.D. AT: AT Report ID: [id number] Reading Location: [id number] Procedure Note Munir Babcock MD - 01/26/2022 [...] Munir Babcock M.D. AT: AT Report ID: [id number] Reading Location: [id number] us Carlos Hinojosa MD [facility] US PROCEDURES Final Res ult * Hepatitis C antibody (12/29/2021 11:53 AM COUNSELOR DORMITORY) Hep C Ab Nonreactive Nonreactive SURY Comment: Interpretive Data Nonreactive: Antibodies to HCV [...] on 2020. Blood 12/29/2021 11:5 3 AM COUNSELOR DORMITORY 12/29/2021 6:03 PM COUNSELOR DORMITORY us Carlos Hinojosa MD LAB MICROBIOLOGY - GENERAL ORDERABLES Final Result Performing Organization Address City/[place] [address] Department [place] [address] from Last 3 Months or Most Recently Relevant to Health Maintenance Insurance MEDICARE MEDICARE [facility] MEDICARE SUPPLEMENT Advance Directives For more information, please contact: [phone] * Full Code (Latest Code Status on File) Date Activated Date Inactivated Comments 05/30/2022 8:25 AM 05/30/2022 2:43 PM * Full Code Date Activated Date Inactivated Comments 05/30/2022 8:25 AM 05/30/2022 8:25 AM Care Teams Ceramics Technician Relationship Specialty Start Date End Date Carlos Hinojosa MD [address] [place] [address] PCP - General Family Medicine 12/20/21 Jj Scott MD [address] [place] [address] Referring Physician Ophthalmology 12/29/21 Cristi Cantu, OD [address] [place] [address] Optometry 10/04/22 Marlene Freitas OD [address] [place] [address] Optometry 11/09/23 Thomas Redman MD [address] [place] [address] Consulting Physician Anesthesiology 02/08/24
[2025-04-22 15:46] LABS: INR 1.1; Partial Thromboplastin Time 29.6 Seconds (22.3-36.8); Prothrombin Time 14.2 Seconds (11.1-14.7); Troponin I < 0.012 ng/mL (0.000-0.034)
--- NOTE | 2025-04-22 16:15 | ED_ITS ---
HPI - General Adult General Chief complaint: Dizziness Stated complaint: dizziness, nauseated Time Seen by Provider: 04/22/25 14:31 History of Present Illness HPI narrative: Patient is 69-year-old gentleman who presents emergency department chief complaint of dizziness and nausea. Patient reports that he had a rotational vertigo symptoms that started this morning. The patient states worse whenever he turns his head from side to side reports the feels the room is spinning patient reports he feels nauseated with this denies chest pain denies shortness of breath Related Data Allergies Allergy/AdvReac Type Severity Reaction Status Date / Time No Known Allergies Allergy Verified 04/22/25 13:40 Review of Systems 2 Review of Systems: A 10 system review of systems was completed on the patient and is negative except for what is stated in the HPI. Nursing and ancillary documentation was reviewed. Exam 2 Narrative: GENERAL: Well-appearing, well-nourished, and in no acute distress. HEAD: Normocephalic, atraumatic. EYES: PERRLA and EOMI. ENT: Nares clear, no rhinorrhea or epistaxis. Mucous membranes moist. NECK: Supple. CHEST: Clear to auscultation. No respiratory distress. HEART: Regular rate and rhythm. No murmur heard. Normal peripheral pulses. ABDOMEN: Soft, nontender, nondistended, normal active bowel sounds. EXTREMITIES: Normal range of motion. No edema. SKIN: Warm, dry, no rash. NEURO: No focal deficits. Alert and oriented x3. Vertiginous symptoms elicited with turning the head to the right PSYCH: Normal mood and affect. Course Vital Signs Vital signs: Vital Signs Temperature 36.8 C 04/22/25 13:38 Pulse Rate 70 04/22/25 13:38 Respiratory Rate 16 04/22/25 13:38 Blood Pressure 133/71 04/22/25 13:38 Pulse Oximetry 97 04/22/25 13:38 Oxygen Delivery Room Air 04/22/25 13:38 Temperature 36.6 C 04/22/25 14:28 Pulse Rate 66 04/22/25 16:01 Respiratory Rate 18 04/22/25 16:01 Blood Pressure 129/80 04/22/25 16:01 Pulse Oximetry 97 04/22/25 15:46 Oxygen Delivery Room Air 04/22/25 13:38 Medical Decision Making [facility] Narrative Medical decision making narrative: Differential diagnosis includes vertigo, CVA, intracranial hemorrhage, CTA head and neck showed no acute abnormality Laboratory studies are within normal limits The patient is given a prescription for Antivert and will be discharged to follow-up with his primary care provider Vital Signs Vital Signs: Vital Signs Temperature 36.8 C 04/22/25 13:38 Pulse Rate 70 04/22/25 13:38 Respiratory Rate 16 04/22/25 13:38 Blood Pressure 133/71 04/22/25 13:38 Pulse Oximetry 97 04/22/25 13:38 Oxygen Delivery Room Air 04/22/25 13:38 Temperature 36.6 C 04/22/25 14:28 Pulse Rate 66 04/22/25 16:01 Respiratory Rate 18 04/22/25 16:01 Blood Pressure 129/80 04/22/25 16:01 Pulse Oximetry 97 04/22/25 15:46 Oxygen Delivery Room Air 04/22/25 13:38 Lab Data 04/22/25 14:18 04/22/25 14:18 Labs: Lab Results 04/22/25 04/22/25 Range/Units 14:18 15:18 WBC 7.2 (4.5-10.0) K/mm3 RBC 5.91 (4.6-6.20) M/mm3 Hgb 16.3 (14.0-18.0) g/dL Hct 49.1 (42.0-52.0) % MCV 83.1 (80-100) fl MCH 27.6 (26-34) pg MCHC 33.2 (32-36) g/dl RDW 13.5 (11.5-14.5) % Plt Count 153 (150-375) k/mm3 MPV 9.9 (7.4-10.4) fl Immature Gran % (Auto) 0.7 H (0-0.5) % Neut % (Auto) 78.8 H (45.5-73.1) % Lymph % (Auto) 13.4 L (18.3-44.2) % [place] % (Auto) 6.1 (2.6-8.5) % Eos % (Auto) 0.6 (0-4.4) % Baso % (Auto) 0.4 (0.2-1.2) % Lymph # (Auto) 0.96 (0.9-3.2) K/mm3 [place] # (Auto) 0.4 (0.1-0.6) K/mm3 Eos # (Auto) 0.0 (0-0.3) K/mm3 Baso # (Auto) 0.0 (0.0-0.1) K/mm3 Abs Immat Gran (auto) 0.05 H (0.00-0.031) K/mm3 Absolute Neuts (auto) 5.7 (1.3-6.7) K/mm3 Absolute Nucleated RBC 0.000 (0.0-0.012) K/mm3 Nucleated RBC % 0.0 (0.0-0.2) % PT 14.2 (11.1-14.7) Seconds INR 1.1 APTT 29.6 (22.3-36.8) Seconds Sodium 138 (137-145) mmol/L Potassium 4.8 (3.4-5.0) mmol/L Chloride 103 (98-107) mmol/L Carbon Dioxide 24 (22-30) mmol/L Anion Gap 11 (4-12) mmol/L BUN 23 H (9-20) mg/dL Creatinine 0.91 (0.7-1.3) mg/dL Estim Creat Clear Calc 91 ml/min Estimated GFR > 60 (59 - ) Glucose 168 H (65-110) mg/dL Lactic Acid 1.3 (0.7-2.0) mmol/L Calcium 9.4 (8.4-10.2) mg/dL Magnesium 2.0 (1.6-2.3) mg/dL Total Bilirubin 0.8 (0.2-1.3) mg/dL AST 23 (17-59) U/L ALT 28 (6-50) U/L Alkaline Phosphatase 95 (38-126) U/L Troponin I < 0.012 (0.000-0.034) ng/mL Total Protein 7.4 (6.3-8.2) g/dL Albumin 4.4 (3.5-5.1) g/dL Lipase 31 (23-300) U/L Urine Color Yellow (Yellow) Urine Appearance Clear (Clear) Urine pH 7.5 (5.0-9.0) Ur Specific [place] 1.018 (1.001-1.035) Urine Protein Negative (Negative) mg/dL Urine Glucose (UA) Negative (Negative) mg/dL Urine Ketones Negative (Negative) mg/dL Ur Blood (Man) Negative (Negative) Urine Nitrate Negative (Negative) Urine Bilirubin Negative (Negative) Urine Urobilinogen 0.2 (<2.0) mg/dL Leukocyte Esterase Rfl Negative (Negative) KARSTEN/UL Discharge Plan Discharge Clinical Impression: Benign paroxysmal positional vertigo Patient Disposition: Home Condition: Stable Instructions: Antibiotic Form, Benign Paroxysmal Positional Vertigo (ED) Patient Language: Congolese Prescriptions: New meclizine 25 mg tablet 25 mg PO TID PRN (Reason: dizziness) Qty: 30 0RF Follow-up/Referrals: Jt Ruth MD [Physician] - UNKNOWN,DOCTOR [Primary Care Provider] - Time of Disposition: 16:47
== END 2025-04-22 17:05 | disposition home or self-care (01) ==
PROVIDERS: Family Medicine; Emergency Provider Emergency Medicine
DX: H81.10 Benign paroxysmal vertigo, unspecified ear (principal); I45.10 Unspecified right bundle-branch block; R94.31 Abnormal electrocardiogram [ECG] [EKG]
CPT/HCPCS: 36415; 70496; 70498; 80053; 81003; 83605; 83690; 83735; 84484; 85025; 85610; 85730; 93005; 96360; 99284; A9270; J7030; Q9967

== ENCOUNTER 2025-09-27 09:37 | Emergency (ER) | payer MEDICARE, SELFPAY ==
--- OUTSIDE RECORDS SUMMARY | 2024-06-20 01:00 | XMS_ITS | Continuity of Care Document ---
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 Name Role Phone Ben PT,MPT,ATC, Arturo Unavailable Unavai lable Procedures Procedure Date Therapeutic Activities Therapeutic Activities Therapeutic Activities Therapeutic Activities Doc neg elder mal no plan PT Evaluation Moderate Complexity Therapeutic Activities PT Re-evaluation Therapeutic Activities Therapeutic Activities Neuromuscular Re-Ed Neuromuscular Re-Ed Therapeutic Activities Therapeutic Exercise Therapeutic Activities Neuromuscular Re-Ed Therapeutic Exercise Therapeutic Activities Neuromuscular Re-Ed Therapeutic Exercise Therapeutic Activities Neuromuscular Re-Ed Therapeutic Exercise Therapeutic Activities Neuromuscular Re-Ed Therapeutic Exercise Therapeutic Activities Manual Therapy Neuromuscular Re-Ed Doc neg elder mal no plan PT Evaluation Moderate Complexity Neuromuscular Re-Ed Manual Therapy Therapeutic Activities THERAPEUTIC EXERCISES NEUROMUSCULAR RE-ED MANUAL THERAPY FUNC ACTIVITY HOT/COLD PACK ELECTRIC STIMULATION UNATT THERAPEUTIC EXERCISES NEUROMUSCULAR RE-ED MANUAL THERAPY FUNC ACTIVITY HOT/COLD PACK ELECTRIC STIMULATION UNATT PT RE-EVALUATION THERAPEUTIC EXERCISES NEUROMUSCULAR RE-ED MANUAL THERAPY FUNC ACTIVITY HOT/COLD PACK ELECTRIC STIMULATION UNATT THERAPEUTIC EXERCISES NEUROMUSCULAR RE-ED MANUAL THERAPY FUNC ACTIVITY HOT/COLD PACK ELECTRIC STIMULATION UNATT THERAPEUTIC EXERCISES NEUROMUSCULAR RE-ED MANUAL THERAPY FUNC ACTIVITY HOT/COLD PACK ELECTRIC STIMULATION UNATT THERAPEUTIC EXERCISES NEUROMUSCULAR RE-ED MANUAL THERAPY FUNC ACTIVITY HOT/COLD PACK ELECTRIC STIMULATION UNATT THERAPEUTIC EXERCISES NEUROMUSCULAR RE-ED MANUAL THERAPY FUNC ACTIVITY HOT/COLD PACK ELECTRIC STIMULATION UNATT THERAPEUTIC EXERCISES NEUROMUSCULAR RE-ED MANUAL THERAPY FUNC ACTIVITY HOT/COLD PACK ELECTRIC STIMULATION UNATT THERAPEUTIC EXERCISES NEUROMUSCULAR RE-ED MANUAL THERAPY FUNC ACTIVITY HOT/COLD PACK ELECTRIC STIMULATION UNATT THERAPEUTIC EXERCISES NEUROMUSCULAR RE-ED MANUAL THERAPY FUNC ACTIVITY HOT/COLD PACK ELECTRIC STIMULATION UNATT THERAPEUTIC EXERCISES NEUROMUSCULAR RE-ED MANUAL THERAPY FUNC ACTIVITY HOT/COLD PACK ELECTRIC STIMULATION UNA THERAPEUTIC EXERCISES NEUROMUSCULAR RE-ED MANUAL THERAPY HOT/COLD PACK ELECTRIC STIMULATION UNA THERAPEUTIC EXERCISES NEUROMUSCULAR RE-ED MANUAL THERAPY HOT/COLD PACK ELECTRIC STIMULATION UNA PT EVALUATION THERAPEUTIC EXERCISES NEUROMUSCULAR RE-ED MANUAL THERAPY HOT/COLD PACK ELECTRIC STIMULATION UNA PT RE-EVALUATION THERAPEUTIC EXERCISES NEUROMUSCULAR RE-ED FUNC ACTIVITY 15 MIN HOT/COLD PACK ELECTRIC STIMULATION UNA THERAPEUTIC EXERCISES NEUROMUSCULAR RE-ED FUNC ACTIVITY 15 MIN HOT/COLD PACK THERAPEUTIC EXERCISES NEUROMUSCULAR RE-ED FUNC ACTIVITY 15 MIN HOT/COLD PACK ELECTRIC STIMULATION UNA THERAPEUTIC EXERCISES NEUROMUSCULAR RE-ED FUNC ACTIVITY 15 MIN THERAPEUTIC EXERCISES NEUROMUSCULAR RE-ED FUNC ACTIVITY 15 MIN HOT/COLD PACK ELECTRIC STIMULATION UNA THERAPEUTIC EXERCISES NEUROMUSCULAR RE-ED FUNC ACTIVITY 15 MIN HOT/COLD PACK THERAPEUTIC EXERCISES NEUROMUSCULAR RE-ED FUNC ACTIVITY 15 MIN HOT/COLD PACK THERAPEUTIC EXERCISES NEUROMUSCULAR RE-ED FUNC ACTIVITY 15 MIN HOT/COLD PACK THERAPEUTIC EXERCISES NEUROMUSCULAR RE-ED FUNC ACTIVITY 15 MIN HOT/COLD PACK THERAPEUTIC EXERCISES NEUROMUSCULAR RE-ED FUNC ACTIVITY 15 MIN THERAPEUTIC EXERCISES NEUROMUSCULAR RE-ED FUNC ACTIVITY 15 MIN THERAPEUTIC EXERCISES NEUROMUSCULAR RE-ED FUNC ACTIVITY 15 MIN THERAPEUTIC EXERCISES NEUROMUSCULAR RE-ED FUNC ACTIVITY 15 MIN PT EVALUATION THERAPEUTIC EXERCISES Advance Directives Directive Yes / No Effective Date File Name No Information Encounters Encounter Description Practice Location Reason(s) For Visit Diagnoses Date Provider Providers Copied on Encounter [facility] [facility], [place], [place], [id number], tel:[phone] [place] No Information 4 Ben Verdin [place], . Referring Provider: Thomas Villalta [address] [facility] [address] Rosalino Scherer [facility] [address], [place], [address]. tel:[phone] [facility] [address] [place] [address], [id number], tel:[phone] [place] No Information 4 Ben Verdin [facility]. Referring Provider: Thomas Villalta, [place] [facility] [address] Rosalino Scherer [facility] [address], [place], [address]. tel:[phone] [facility] [address], [place], [place], [id number], [place] tel:[phone] [place] No Information 4 Ben Verdin [facility]. Referring Provider: Thoams Villalta, [address] [facility] [address] Rosalino Scherer [facility] [address], [place], [address]. tel:[phone] [facility], [place], [place], [id number], tel:[phone] [place] No Information 4 Ben Verdin [place], [place]. Referring Provider: Thomas Villalta, [address] [facility] [address] Rosalino Scherer [address], [place], [address]. tel:[phone] [facility] [address] [facility] [address], [place], [place], [id number], [place] tel:[phone] [place] No Information 0 4 Jonah Ascencio. . Referring Provider: Thomas Villalta, [address] [facility] [address] Rosalino Scherer [address], [place], [address]. tel:[phone] [facility], [address] [facility], [place], [place], [id number], [place] tel:[phone] [place] No Information 2 [facility] [place] Referring Provider: Carlos Scherer, [address] [place], [address]. tel:[phone] [facility], [id number], [place] tel:[phone] [place] No Information Sep-2 2 [place], [place]. Referring Provider: Carlos Scherer, [address] [place], [address]. tel:[phone] [facility], [id number], [place] tel:[phone] [place] No Information Sep-2 2 [facility] Referring Provider: Carlos Scherer, [address] [place], [address]. tel:[phone] [facility], [id number], [place] tel:[phone] [place] No Information Sep-1 2 [facility] Referring Provider: Carlos Scherer, [address] [place], [address]. tel:[phone] [facility], [address] [facility] [address], [place], [place], [id number], [place] tel:[phone] [place] No Information Sep-1 2 Contre[place] Arturo. , [place], [place]. Referring Provider: Carlos Scherer, [address] [facility], [place], [address]. tel:[phone] [facility] [facility], [place], [place], [id number], [place] tel:[phone] [place] No Information Sep-0 2 [place] Arturo. , [place], [place]. Referring Provider: Carlos Scherer, [address] [facility], [place], [address]. tel:[phone] [facility], [address] [facility], [place], [place], [id number], tel:[phone] [place] No Information Sep-0 2 [place] Arturo. , [place], [place]. Referring Provider: Carlos Scherer, [address] [place], [address]. tel:[phone] [facility] [facility], [place], [place], [id number], [place] tel:[phone] [place] No Information Sep-0 2 [place] Arturo. , [place], [place]. Referring Provider: Carlos Scherer, [address] [place], [address]. tel:[phone] [facility] [facility], [place], [place], [id number], [place] tel:[phone] [place] No Information Jun-3 2 [place] Art[place]. , [place], [place]. Referring Provider: Carlos Scherer, [address] [facility], [place], [address]. tel:[phone] [facility] [facility] [address] [place] [address], [id number], [place] tel:[phone] [place] No Information 1201 4 [place] Tor[place] Sandra. [address] [facility], [address], [place], [address], [place]. tel: [phone] Referring Provider: Kathy Sheth, [address] [place] [address] [address], [place], [address]. tel:[phone] [address], [place], [place], [id number], [place] tel:[phone] [place] No Information 8-201 4 [place] Sandra. [address] [facility], [address], [place], [address], [place]. tel: [phone] Referring Provider: Kathy Sheth, [address] [place] [address] [address], [place], [address]. tel:[phone] [address] [address], [place], [place], [id number], [place] tel:[phone] [place] No Information 6201 4 [place] Sandra. [address] [facility], [address], [place], [address], [place]. tel: [phone] Referring Provider: Kathy Sheth, [address] [place] [address] [address], [place], [address]. tel:[phone] [address] [address], [place], [place], [id number], [place] tel:[phone] [place] No Information 4-201 4 [place] Sandra. [address] [facility], [address], [place], [address], [place]. tel: [phone] Referring Provider: Kathy Sheth, [address] [place] [address] [address], [place], [address]. tel:[phone] [address] [address], [place], [place], [id number], tel:[phone] [place] No Information 201 4 Flores Ismael. [address] [facility], [address], [place], [address], [place]. tel: [phone] Referring Provider: Kathy Sheth, [address] [facility] [address], [place], [address]. tel:[phone] [address] [address], [place], [place], [id number], [place] tel:[phone] [place] No Information 9-201 4 Del Toro Sandra. [address] [place] [address], [address], [place], [address], [place]. tel: [phone] Referring Provider: Kathy Sheth, [id number] [place] [address] [address], [place], [address]. tel:[phone] [address] [address], [place], [place], [id number], [place] tel:[phone] [place] No Information 7-201 4 Del Toro Sandra. [address] [place] [address], [address], [place], [address], [place]. tel: [phone] Referring Provider: Kathy Sheth, [address] [facility] [address], [place], [address]. tel:[phone] [address] [address], [place], [id number], [place] tel:[phone] [place] No Information 3-201 4 [place] Sandra. [address] [facility], [address], [place], [address], [place]. tel: [phone] Referring Provider: Kathy Sheth, [address] [facility] [address], [place], [address]. tel:[phone] [facility], [address] [place] [address], [place], [place], [id number], [place] tel:[phone] [place] No Information 1-201 4 Del Toro Sandra. [address] [place] [address], [address], [place], [address], [place]. tel:[phone] Referring Provider: Kathy Sheth, [address] [facility] [address], [place], [address]. tel:[phone] [address] [address], [place], [place], [address], [place] tel:[phone] [place] No Information Apr- 7-201 4 Del Toro Sandra. [address] [place] [address], [address], [place], [address], [place]. tel:[phone] Referring Provider: Kathy Sheth, [address] [facility] [address], [place], [address]. tel:[phone] [address] [address], [place], [place], [address], [place] tel:[phone] [place] No Information 5201 4 Del Toro Sandra. [address] [place] [address], [address], [place], [address], [place]. tel:[phone] Referring Provider: Kathy Sheth, [address] [facility] [address], [place], [address]. tel:[phone] [address] [address], [place], [place], [id number], [place] tel:[phone] [place] No Information 3-201 4 Del Toro Sandra. [address] [place] [address], [address], [place], [address], [place]. tel:[phone] Referring Provider: Kathy Sheth, [address] [facility] [address], [place], [address]. tel:[phone], [place], [place], [id number], [place] tel:[phone] [place] No Information Apr- 9-201 4 Del Toro Sandra. [address] [place] [address], [address], [place], [address], . tel: [phone] Referring Provider: Kathy Sheth, [address] [facility] [address], [place], [address]. tel:[phone], [id number], tel:[phone] [place] Kilo 4 Del Toro Sandra. [address] [place] [address], [address], [place], [place], [facility], [place]. tel: [phone] Referring Provider: Kathy Sheth, [address] [facility] [address], [place], [address]. tel:[phone], [id number], tel:[phone] [place] No Information 3 Del Toro Sandra. [address] [place] [address], [address], [place], [place], [facility], [place]. tel: [phone] Referring Provider: [place], [address]. tel:[phone], [id number], tel:[phone] [place] No Information 3 [place] Tor[place] Sandra. [address] [place] [address], [address], [place], [address], [place]. tel: [phone] Referring Provider: [place], [address]. tel:[phone], [id number], tel:[phone] [place] No Information 3 Del Tor[place] Sandra. [address] [place] [address], [address], [place], [address], . tel: [phone] Referring Provider: Shari Pierre [place], [facility]. tel:[phone], [place], [place], [address], tel:[phone] [place] No Information -201 3 Del Toro Sandra. [address] [place] [address], [address], [facility], . tel: [phone] Referring Provider: Cyril Pacheco, [address] [place], [place], [facility]. tel:[phone], [place], [place], [address], [place] tel:[phone] [place] No Information 9-201 3 [place] Tor[place] Sandra. [address] [place] [address], [address], [facility], . tel: [phone] Referring Provider: Cyril Pacheco, [place], [facility]. tel:[phone], [place], [place], [address], [place] tel:[phone] [place] No Information 2-201 3 Del Toro Sandra. [address] [place] [address], [address], [facility], . tel: [phone] Referring Provider: Shari Pierre [place], [facility]. tel:[phone], [place], [place], [id number], [place] tel:[phone] [place] No Information -201 2 [place] Tor[place] Sandra. [address] [place] [address], [address] [place] [address], [facility], . tel: [phone] Referring Provider: Cyril Pacheco [address] [place], [place], [facility]. tel:[phone], [place], [place], [address], tel:[phone] [place] No Information Dec-2 8-201 2 [place] Tor[place] Sandra. [address] [place] [address], [facility] [place], [place], [facility], . tel: [phone] Referring Provider: Cyril Pacheco, [address] [place], [place], [facility]. tel:[phone], [place], [place], [address], tel:[phone] [place] No Information Dec-2 6-201 2 [place] Tor[place] Sandra. [address] [place] [address], [facility] [address], [place], [facility], . tel: [phone] Referring Provider: Cyril Pacheco, [address] [place], [place], [facility]. tel:[phone], [id number], tel:[phone] [place] No Information Dec-2 0-201 2 Katarzyna Dangelo. [address] [place] [address], [address], [facility], . tel: [phone] Referring Provider: Cyril Pacheco, [address] [place], [facility]. tel:[phone], [id number], tel:[phone] [place] No Information Dec-1 7-201 2 [place] Tor[place] Sandra. [address] [place] [address], [address], [place], [facility], . tel: [phone] Referring Provider: Cyril Pacheco [address] [place], [place], [facility]. tel:[phone], [place], [place], [address], tel:[phone] [place] No Information Dec-1 3-201 2 Del Tor[place] Sandra. [address] [place] [address], [facility] [address], [place], [facility], . tel:[phone] Referring Provider: Cyril Pacheco, [address] [place], [address]. tel:[phone], [id number], [phone] [place] No Information Dec-1 0-201 2 [place] Sandra. [address] [facility], [address], [place], [facility], . tel:[phone] Referring Provider: Cyril Pacheco, [address] [place], [address]. tel:[phone], [id number], tel:[phone] [place] Pain in joint involving lower leg Dec-0 7-201 2 [place] Sandra. [address] [facility], [address], [place], [address], . tel:[phone] Referring Provider: Cyril Pacheco, [place], [address]. tel:[phone] Family History Family Member Type Diagnosis Age At Onset No Information Payers Payer name Insurance type Covered constitution party ID Authoriza [place](s) Medicare [place] [id number] [facility] [id number] Social History Type Description Quantity Date Captured Comments Sex Male Smoking Status No Information Chief Complaint And Reason For Visit No Information Reason For Referral Reason For Referral No Information History Of Present Illness Encounter Date Complaint History Of Prese nt Illness No Information Functional Status Date Functional Assessmen t No Information Instructions Date Instruction Additional Infor mation Giving encouragement to exercise Related to Overweight Giving encouragement to exercise Related to Overweight Assessments Type Assessment Date No Information Patient Care Teams Name Effective Dates (start - stop) Status Members No Information
--- NOTE | ~2025-09-27 | XR_ITS ---
Examination: XR hip RT 2V w AP pelvis Clinical History: RT hip pain, no known injury Comparison: None Technique: AP pelvis, 2 views right hip Findings/impression: 1. No fracture or dislocation right hip. 2. No pelvic fracture identified Reviewed, dictated and finalized at location R. X CASTER
--- NOTE | ~2025-09-27 | CT_ITS ---
CT lumbar spine CLINICAL HISTORY: low back pain Technique: Lumbar spine Sagittal and coronal reformats. No contrast CT images acquired with automatic exposure control for dose reduction DLP: 1152 mGy-cm Comparison: None Findings: No fracture. Grade 1 retrolisthesis L4 on 5. Superior endplate degenerative changes L2-4. Moderate multilevel degenerative changes, with mild multifocal central canal and neural foraminal stenoses. Benign lucent focus L3. Disc spaces maintained. No paravertebral soft tissue abnormality. IMPRESSION: 1. No acute abnormality. Reviewed, dictated and finalized at location R. IFFS DETECTIVE IMPRESSION: 1. No acute abnormality.
--- OUTSIDE RECORDS SUMMARY | 2025-09-27 09:40 | XMS_ITS | Encounter Summary ---
Author Organization [facility] Healthcare Address [address] [place] [address] Care Team Providers Care Rail Detector Car Operator Name Role Phone Carlos Hinojosa MD Primary Care Provider Jj Scott MD Unavailable [phone] Cristi Cantu OD Unavailable [phone] Marlene Freitas OD Unavailable [phone] Thomas Redman MD Unavailable Reason for Visit * Reason Onset Date Comments Back Pain 09/26/2025 Encounter Details Date Type Department Care Team (Late st Contact Info) Description 09/26/2025 Nurse Triage [facility] Medical Group Primary Care at [address] [address] Carlos Hinojosa MD [address] [place] [address] [address] [place] [address] Social History Tobacco Use Types Packs/Day Years [...] more points, staff should administer the PHQ-9) 0 05/01/2025 PHQ-9 Answer Date Recorded PHQ-9 Total Score 10 10/01/2024 Education Answer Date Recorded What is the highest level of school you have completed or the highest degree you have received? 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 Reason for Conversation Back Pain Background Patient calling with worsening pain over the last ten days. He states it starts in his back and radiates down to right hip and has a sharp pain in groin. Denies recent injury, swelling, discoloration, abdominal pain, change in urination, fever, history of kidney stones. Has tried Otc ibuprofen withlittle relief. He states he can only take about 10 steps and then has to stop due to the pain. Disposition Go to ED/UCC Now (or to Office With PCP Approval) Patient aware of PCP recommendation and will head to ED now. Reason for Disposition Pain radiates into groin, scrotum Caller agrees to call back after ED treatment is completed so that follow up care may be arranged with PCP as needed. Protocols Used Back [id number] NT ACQUISITION COORDINATOR * Telephone Encounter - Paulette Gil RN - 09/26/2025 9:07 AM TALENT ACQUISITION COORDINATOR Regarding: Severe back and right hip pain ----- Message from Daiana Berkowitz sent at 09/26/2025 8:55 AM TALENT ACQUISITION COORDINATOR ----- Symptom Based Call Chief Complaint(s): Severe back and right hip pain Duration: Little over a week What type of symptom(s) is the patient experiencing? Red Flag. Is the patient concerned they are experiencing a medical emergency requiring an ambulance? No Additional Comments: Pt states pain has worsened within the last couple of days to the point after taking a couple of steps it becomes very painful. Pt states he also had an epidural about a year ago Does message need to be routed? Yes-Action Needed NT ACQUISITION COORDINATOR documented in this encounter Plan of Treatment Upcoming Encounters Date Type Department Care Team (Late st Contact Info) Description 11/18/2025 9:30 AM TALENT ACQUISITION COORDINATOR Hospital Encounter [address] [address] Madalyn Moreira MD [address] [place] [address] DR MULTANI [address] [place] [id number] 11/18/2025 9:30 AM TALENT ACQUISITION COORDINATOR - 11/18/2025 10:00 AM TALENT ACQUISITION COORDINATOR Surgery [address] [address] Madalyn Moreira MD [address] [place] [address] DR MULTANI [address] [place] [id number] COLONOSCOPY Scheduled Procedures Name Priority Associated Diagnoses Date/Ti me COLONOSCOPY History of colonic polyps Family history of colon cancer 11/18/2025 9:30 AM TALENT ACQUISITION COORDINATOR documented as of this encounter Visit Diagnoses Not on filedocumented in this encounter Care Teams Rail Detector Car Operator Relationship Specialty Start Date End Date Carlos Hinojosa MD [address] [place] [address] PCP - General Family Medicine 12/20/21 Jj Scott MD [address] [place] [address] Referring Physician Ophthalmology 12/29/21 Cristi Cantu OD [address] [place] [address] Optometry 10/04/22 Marlene Freitas, OD [address] [place] [address] Optometry 11/09/23 Thomas Redman MD [address] [place] [address] Consulting Physician Anesthesiology 02/08/24 documented as of this encounter
--- OUTSIDE RECORDS SUMMARY | 2025-09-27 09:40 | XMS_ITS | Clinical Summary ---
Author Organization [facility] [place] [address] [place] [place] Address [address] [place] [id number] Care Team Providers Care Cleaning Matron Name Role Phone Carlos Hinojosa MD Primary Care Provider Jj Scott MD Unavailable [phone] Cristi Cantu OD Unavailable [phone] Marlene Freitas OD Unavailable [phone] Thomas Redman MD Unavailable [phone] Allergies Active Allergy Reactions Criticality Noted Date Comments Levofloxacin Pollen Extracts Eye irritation Low 12/29/2021 Ragweed Medications lancets [facility] For home blood glucose monitoring, 1-3 times per day. E11.65 200 each 3 022 Active peg 400-propylene glycol, PF, 0.4-0.3 % drops Administer into affected eye(s) Active TechLITE Pen Needle 29 gauge x 1/2 needle USE TO INJECT INSULIN 1 TO 4 TIMES DAILY DIRECTED 023 Active blood glucose diagnostic (glucose blood) stripIndications :Type II or unspecified type diabetes mellitus with renal manifestations, uncontrolled(250 .42) ([facility]) For use with blood glucose monitoring, 1-3 times per day. 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 .42) (HCC) Take 2 tablets (80 mg total) by mouth daily 180 tablet 025 Active meclizine (ANTIVERT) 25 mg tablet 025 Active escitalopram (LEXAPRO) 20 mg tabletIndication s:Major depressive disorder, recurrent, mild Take 1 tablet (20 mg total) by mouth daily 90 tablet 3 025 2025 Active TRESIBA 200 unit/mL (3 mL) pen for injection Inject 0.08 mL (16 Units total) under the skin 2 (two) times a day before breakfast and dinner 16 mL 3 025 Active insulin degludec (TRESIBA) 200 unit/mL (3 mL) pen for injection INJECT 16 UNITS SUBCUTANEOUSLY TWICE DAILY (AFTER BREAKFAST AND DINNER) 9 mL 025 Active insulin degludec (TRESIBA) 200 unit/mL (3 mL) pen for injection Inject 0.08 mL (16 Units total) under the skin 2 (two) times a day after breakfast and dinner 16 mL 1 025 2024 Discontinued Active Problems Problem Noted Date Diagnosed Date History of colonic polyps 06/04/2025 Simple chronic bronchitis 05/01/2025 Class 2 severe obesity due t o excess calories with serious comorbidity and body mass index (BMI) of 35.0 to 35.9 in adult 05/01/2025 Encounter for Medicare annual wellness exam 09/07 Assessment & Plan (10/01/2024 9:33 AM SENIOR MARKETING ANALYST): A(n) yearly Medicare Annual Wellness Visit has [...] Return in 1 year Asthma 08/09/2023 Class 1 obesity due to exces s calories with serious comorbidity and body mass index (BMI) of 34.0 to 34.9 in adult 10/04/2022 Assessment & Plan (02/08/2024 8:45 AM CDT): BMI Follow-up includes: nutrition counseling, exercise counseling, and education provided. Assessment & Plan (11/09/2023 9:25 AM SENIOR MARKETING ANALYST): BMI Follow-up includes: nutrition counseling, exercise counseling, and education provided. Assessment & Plan (08/09/2023 9:23 AM CDT): BMI Follow-up includes: nutrition counseling, exercise counseling, and education provided. Assessment & Plan (10/04/2022 12:35 PM SENIOR MARKETING ANALYST): BMI Follow-up includes: nutrition counseling, exercise counseling and education provided. Hyperlipidemia associated with type 2 diabetes jose velarde 10/04/2022 Assessment & Plan (11/09/2023 9:26 AM SENIOR MARKETING ANALYST): A1c today Continuing atorvastatin No change on Tresiba Assessment & Plan (10/04/2022 12:35 PM SENIOR MARKETING ANALYST): Awaiting labs Continuing Tresiba at current dosage, [...] (02/02/2022): Added automatically from request for surgery [id number] Cataracts, bilateral 12/29/2021 Colon cancer screening 12/29/2021 Overview (12/29/2021): Added automatically from request for surgery [id number] Encounter for medical examination to establish c [...] had the RSV vaccine on 07/[address] [facility]. We discussed healthy lifestyle habits, educational material has been given. Medications reviewed, changes documented as per the medical record and discussed with patient along with risks vs benefits. Return in 3 months Assessment & Plan (12/29/2021 12:19 PM SENIOR MARKETING ANALYST): A initial Medicare Annual Wellness Visit has [...] Abdominal aortic aneurysm screening ordered as well ([facility]) Anaclitic depression 10/29/2014 Resolved Problems Problem Noted Date Diagnosed Date Resolved Date Lumbar radiculopathy 02/02/2024 024 Neck pain 04/05/2022 02/21/2024 Non-smoker 10/29/2014 02/21/2024 Arthritis 10/29/2014 02/21/2024 Shortness of breath 10/29/2014 12/29/19 22 Osteoarthritis 10/29/2014 02/21/2024 Knee pain 10/02/2012 02/21/2024 Osteoarthritis of shoulder 05/31/2011 0 02/21/2024 Encounters Date Type Department Care Team Description 09/26/2025 Nurse Triage [facility] Primary Care at [address] [address] Carlos Hinojosa MD from Last 3 Months Immunizations Immunization Administration Dates Next Due Influenza, Quad, Adjuvantate d, Intramuscular 06/28/2023,08/16/2022,08/10/2021 Influenza, Quadrivalent, Melly l Culture-based MDCK, Preservative Free, Antibiotic Free, Intramuscular 08/20/2018,09/11/2017 Influenza, Quadrivalent, Spl it, Preservative Free, Intramuscular 08/25/2020,09/01/2016 Influenza, Trivalent, Adjuva nted, Intramuscular 08/04/2025,08/20/2024,08/29/2019 Influenza, Trivalent, IM (MDV) 08/25/2014,2012,10/17/2012 Influenza, Trivalent, Preser vative Free, Intramuscular 08/13/2015 Influenza, Unspecified 07/12/2023,08/16/2022 AiCuris Sars-Cov-2 Bivalent V accination (12+ YRS) 08/16/2022 Pneumococcal Conjugate PCV 13 09/06/2015 Pneumococcal Polysaccharide PPV23 08/25/2020 RSV Vaccine, Pref, Recombina nt, Subunit, Adjuvanted, PF, IM (Arexvy) 07/05/2023 Tdap 07/12/2023,06/28/2023 ZOSTER LIVE 08/26/2014 ZOSTER Recombinant 12/19/2023,06/28/2023 Surgical History Surgery Date Site/Laterality Comments MD ARTHROSCOPY KNEE DIAGNOSTIC W/WO SYNOVIAL BX SPX 11/06/1979 - 11/05/1980 Arthroscopy Knee Left - (Added by TW Conv) MD ARTHROSCOPY KNEE DIAGNOSTIC W/WO SYNOVIAL BX SPX Arthroscopy Knee Right - (Added by TW Conv) CATARACT EXTRACTION COLONOSCOPY 2013 COLONOSCOPY 06/10/2022 Medical History Medical History Date Comments Depression Pneumonia History of COVID-19 2020 2ce Cataracts, bilateral 12/29/2021 Asthma Type 2 diabetes mellitus Family History Medical History Relation Name Comments Dementia Father Parkinsonism Father Throat cancer Father Frontotemporal dementia Father's Brother Heart disease Maternal Grandfather Hyperlipidemia Maternal Grandfather Diabetes Maternal Grandmother Diabetes Mother chronic leukemia Mother Diabetes Other 1 Family history of diabetes mellitus - (Added by TW Conv) Colon cancer Other 2 Colon cancer - (Added by TW Conv) Colon cancer Paternal Grandfather Frontotemporal dementia Paternal Grandmother Diabetes Sister ESKD Requiring Dialysis Sister Myasthenia gravis Sister Relation Name Status Comments Father Father's Brother Maternal Grandfather Maternal Grandmother Mother Other 1 [...] on file Legal Sex Male 8:47 AM SENIOR MARKETING ANALYST Gender Identity Not on file Sexual Orientation Not on file 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 Not on file Not on file Not on file Last Filed Vital Signs Vital Sign Reading Time Taken Comments Blood Pressure 126/80 05/01/2025 8:26 AM CDT Pulse 78 05/01/2025 8:26 AM CDT Temperature 36 C (96.8 F) 05/01/2025 8:26 AM CDT Respiratory Rate 16 05/01/2025 8:26 AM CDT Oxygen Saturation 98% 05/01/2025 8:26 AM CDT Inhaled Oxygen Concentration - - Weight 117 kg (258 lb) 05/01/2025 8:26 AM CDT Height 185.4 cm (6' 1) 05/01/2025 8:26 AM CDT Body Mass Index 34.04 05/01/2025 8:26 AM CDT Plan of Treatment Upcoming Encounters Date Type Department Care Team (Late st Contact Info) Description 11/18/2025 9:30 AM SENIOR MARKETING ANALYST Hospital Encounter [facility] [address] [place] [address] Madalyn Moreira MD [address] [facility] [address] [place] [address] 11/18/2025 9:30 AM SENIOR MARKETING ANALYST - 11/18/2025 10:00 AM SENIOR MARKETING ANALYST Surgery [address] [address] Madalyn Moreira MD [address] [place] [address] [address] [place] [address] COLONOSCOPY Scheduled Procedures Name Priority Associated Diagnoses Date/Ti me COLONOSCOPY History of colonic polyps Family history of colon cancer 11/18/2025 9:30 AM SENIOR MARKETING ANALYST Health Maintenance Due Date Last Done Comments Hepatitis B Screening 1973 Foot Exam 08/09/2024 08/09/2023, 06/30/2022 Covid-19 Vaccine ( season) 2025 08/16/2022, 02/19/2022, 08/10/2021, Additional history exists Hemoglobin A1C 10/31/2025 05/01/2025, 09/07, 05/13/2024, Additional history exists Albumin Creatinine Ratio, Urine 05/01/2026 05/01/2025, 10/01/2024, 08/09/2023, Additional history exists Depression Screening 05/01/2026 05/01/2025, 10/01/2024, 10/01/2024, Additional history exists Dilated Eye Exam 05/01/2026 10/11/2023 Postponed f rom 10/11/2024 (Patient declined, but will receive in the future) Fall Risk Assessment 05/01/2026 05/01/2025, 10/01/2024, 05/13/2024, Additional history exists Lipid Panel 05/01/2026 05/01/2025, 09/07, 02/08/2024, Additional history exists Well Visit 65+ 05/01/2026 05/01/2025, 02/2023, 12/29/2021 eGFR 05/01/2026 05/01/2025, 09/07, 02/08/2024, Additional history exists Colon Cancer Screening-Colonoscopy 05/30/2032 05/30/2022 DTaP/Tdap/Td Vaccine (3 - Td or Tdap) 07/12/2033 07/12/2023, 06/28/2023 Pneumococcal vaccine 65+ Completed 08/25/2020, 11/2014 Hepatitis C Screening Completed 12/29/2021 Abdominal Aortic Aneurysm (AAA) Screen Completed 01/26/2022 Prostate Cancer Screening-PSA Discontinued 04/18/2023, 12/29/2021 Zoster Vaccine Completed 12/19/2023, 06/07, 08/26/2014 Influenza Vaccine Completed 08/04/2025, , 07/12/2023, Additional history exists Procedures Procedure Name Priority Date/Time Associated Diagnosis Comments EGFR Routine 05/01/2025 9:09 AM CDT Hyperlipidemia associated with type 2 diabetes mellitus (HCC) HEMOGLOBIN A1C Routine 05/01/2025 9:09 AM CDT Hyperlipidemia associated with type 2 diabetes mellitus (HCC) LIPID PANEL Routine 05/01/2025 9:09 AM CDT Hyperlipidemia associated with type 2 diabetes mellitus (HCC) ALBUMIN CREATININE RATIO, URINE Routine 05/01/2025 9:09 AM CDT Hyperlipidemia associated with type 2 diabetes mellitus (HCC) HM DIABETES EYE EXAM Routine 10/11/2023 PSA SCREEN Routine 04/18/2023 12:00 PM CDT Screening for prostate cancer COLONOSCOPY 05/30/2022 8:28 AM CDT US ABDOMINAL AORTIC ANEURYSM SCREENING Schedule Routine, Read Routine (OP Routine) 01/26/2022 9:02 AM CDT Screening for AAA (abdominal aortic aneurysm) Screening for abdominal aortic aneurysm HEPATITIS C ANTIBODY Routine 12/29/2021 11:53 AM SENIOR MARKETING ANALYST Encounter for hepatitis C screening test for low risk patient from Last 3 Months or Most Recently Relevant to Health Maintenance Results * eGFR (05/01/2025 9:09 AM CDT) eGFR 75 >=60 mL/min/1. 73 m2 Comment: Interpretive Data [...] interpretive data was last reviewed 2021. Blood 05/01/2025 9:09 AM CDT 05/01/2025 5:27 PM CDT us Carlos Hinojosa MD LAB BLOOD ORDERABLES Final Result [facility] [id number] Department [place] [address] * Albumin Creatinine Ratio, Urine (05/01/2025 9:09 AM CDT) Albumin Ur <12.0 mg/L Comment: Interpretive Data No reference range established. Current interpretive data was last revised 2019. Creatinine Ur 204.4 mg/dL [facility] Comment: Interpretive Data No reference range established. Current interpretive data was last revised 2019. Albumin Creatinine Ratio, Ur <6 1 - 29 mg/g [facility] Urine 05/01/2025 9:09 AM CDT 05/01/2025 5:24 PM CDT Carlos Hinojosa MD LAB URINE ORDERABLES Final Result Performing Organization Address [facility] de Phone Number [facility] [address] [place] [place], [place] [id number] * (ABNORMAL) Hemoglobin A1c (05/01/2025 9:09 AM CDT) Hgb A1C 6.7(H) 4.0 - 5.6 % Estimated Average Glucose 146 mg/dL [facility] Comment: The ADA recommends reporting an estimated Average Glucose (eAG) with all Hemoglobin A1c results using the equation derived from a study of 507 normal and diabetic adults. Minority populations were underrepresented and children were not included. (Diabetes Care 31:4231-6319, 2008). The eAG is not equivalent to a fasting glucose. Blood 05/01/2025 9:09 AM CDT 05/01/2025 5:22 PM CDT Carlos Hinojosa MD LAB BLOOD ORDERABLES Final Result Performing Organization Address [facility] de Phone Number [facility] [address] [place] [address] * (ABNORMAL) Lipid panel (05/01/2025 9:09 AM CDT) Cholesterol 157 30 - 199 mg/dL Comment: Interpretive Data [...] Data was last revised on 2018. Triglycerides 170(H) <=149 mg/dL [facility] Comment: Interpretive Data Ages [...] was last revised on 2018. LDL, calculated 88 <=129 mg/dL [facility] Comment: Interpretive Data Ages < or = 19 years Acceptable: <110 mg/dL Borderline high: 110-129 mg/dL High: >or= 130 mg/dL Ages > or = 20 years Optimal: <100 mg/dL Near optimal: 100-129 mg/dL Borderline high: 130-159 mg/dL High: >160 mg/dL Calculated using the Gonzalez LDL-C estimating equation. This equation was implemented on 2024. Prior to this date LDL-C was estimated using the Friedewald equation. Literature References: 1. Expert Panel on Integrated Guidelines for Cardiovascular Health and Risk Reduction in Children and Adolescents. Pediatrics 2011;128:S213 2. NCEP Expert Panel. Circulation 2004;110:227 3. Carlos M et al. LION Cardiol. 2019March 06;5(5):540-548. doi: 10.1001/jamacardio.2020.0013 Current Interpretive Data was last revised on 2024. Non-HDL Cholesterol 117 mg/dL [facility] [place] Comment: Interpretive Data Ages [...] on 2018. Chol/HDL ratio 4 [facility] Blood 05/01/2025 9:09 AM CDT 05/01/2025 5:22 PM CDT Carlos Hinojosa MD LAB BLOOD ORDERABLES Final Result [facility] [address] [facility] Department [place] [address] * DIABETES EYE EXAM (10/11/2023) SCRIBED DIABETIC [...] BLOOD ORDERABLES Final Result Performing Organization Address City/State/ZIP Co sc Phone Number [facility] [address] [place] [address] * COLONOSCOPY (05/30/2022 8:28 AM CDT) Anatomical Region Laterality Modality Other Narrative Procedure Note Madalyn Moreira MD - 05/30/2022 8:28 AM CDT [facility] Patient Name: Manjeet Neri Procedure Date: 05/30/2022 8:28 AM Date of : 1955 Admit Type: Outpatient Age: 67 Gender: Male Attending MD: Madalyn Moreira M.D. Room: [facility] 1 Note Status: Finalized Patient Profile: This is a 67 year old male. Grandfather and uncleboth had colon cancer. His sister had colon polyps. Screening colonoscopy. Procedure: Colonoscopy Indications: Colon cancer screening in patient at increasedrisk: Family history of colorectal cancer in multiple [...] retrieved. Clip (MR conditional) was placed. Clipmanufacturer: [employer]. - Internal hemorrhoids. Recommendation: - Await [...] under direct vision. The Pediatric Colonoscope [id number]-[id number] was introducedthrough the anus and advanced to [...] clip was successfully placed (MR conditional). Clip psychology instructor: [employer]. Therewas no bleeding at the end of the procedure. The rectum, sigmoid colon and descending colon appeared normal. One diverticulum noted in the descending colon. Internal hemorrhoids were found during retroflexion. The hemorrhoids were small. Electronically signed by Madalyn Moreira M.D. Madalyn Moreira M.D. 05/30/2022 9:50:21 AM Number of Addenda: 0 Note Initiated On: 05/30/2022 8:28 AM Procedure Code(s): --- Professional --- 11153, Colonoscopy, flexible; with removal of tumor(s), polyp(s), or other lesion(s) by snare technique 43003, 59, Colonoscopy, flexible; with biopsy, single or multiple Diagnosis Code(s): --- Professional --- Z80.0, Family history of malignant neoplasm of digestive organs K64.8, Other hemorrhoids D12.0, Benign neoplasm of cecum D12.3, Benign neoplasm of transverse colon (hepatic flexure orsplenic flexure) CPT copyright 2020 [employer]. All rights reserved. The codes documented in this report are preliminary and upon teacher private reviewmay be revised to meet current compliance requirements. Recognized by the [place] [employer] for promoting quality [...] Munir Babcock M.D. AT: AT Report ID: [id number] Reading Location: [id number] Procedure Note Munir Babcock MD - 01/26/2022 [...] Munir Babcock M.D. AT: AT Report ID: [id number] Reading Location: [id number] us Carlos Hinojosa MD IMG US PROCEDURES Final Res ult * Hepatitis C antibody (12/29/2021 11:53 AM SENIOR MARKETING ANALYST) Hep C Ab Nonreactive Nonreactive [facility] [place] [...] on 2020. Blood 12/29/2021 11:5 3 AM SENIOR MARKETING ANALYST 12/29/2021 6:03 PM SENIOR MARKETING ANALYST Carlos Hinojosa MD LAB MICROBIOLOGY - GENERAL ORDERABLES Final Result [facility] [address] [address] [place] [address] from Last 3 Months or Most Recently Relevant to Health Maintenance Insurance MEDICARE [facility] Address: [address] [address] MEDICARE [facility] MEDICARE SUPPLEMENT Advance Directives For more information, please contact: [phone] * Full Code (Latest Code Status on File) Date Activated Date Inactivated Comments 05/30/2022 8:25 AM 05/30/2022 2:43 PM * Full Code Date Activated Date Inactivated Comments 05/30/2022 8:25 AM 05/30/2022 8:25 AM Care Teams Cleaning Matron Relationship Specialty Start Date End Date Carlos Hinojosa MD [address] [place] [address] PCP - General Family Medicine 12/20/21 Jj Scott MD [address] [place] [address] Referring Physician Ophthalmology 12/29/21 Cristi Cantu OD [address] [place] [address] Optometry 10/04/22 Marlene Freitas, OD [address] [place] [address] Optometry 11/09/23 Thomas Redman MD [address] [place] [address] Consulting Physician Anesthesiology 02/08/24
[2025-09-27 09:46] VITALS: BP 146/92; PULSE 87; RESP 18; TEMP 36.7; O2SAT 98
[2025-09-27] MEDS: dexAMETHasone SOD PHOS INJ 10 MG/ML 1 ML VIAL IM (10:42)
[2025-09-27] MEDS: CYCLOBENZAPRINE HCL 10 MG TABLET PO (10:42)
[2025-09-27] MEDS: KETOROLAC 30 MG/ML VIAL (*BKC) IM (10:42)
--- OUTSIDE RECORDS SUMMARY | 2025-09-27 10:54 | XMS_ITS | Encounter Summary ---
Author Organization [facility] Healthcare Address [address] [place] [address] Care Team Providers Care Clamper Name Role Phone Carlos Hinojosa MD Primary Care Provider Jj Scott MD Unavailable Cristi Cantu OD Unavailable [phone] Marlene Freitas OD Unavailable [phone] Thomas Redman MD Unavailable Reason for Visit * Reason Onset Date Comments Back Pain 09/26/2025 Encounter Details Date Type Department Care Team (Late st Contact Info) Description 09/26/2025 Nurse Triage [facility] Medical Group Primary Care at [address] [address] Carlos Hinojosa MD [address] [place] [address] [address] [place] [address] Social History Tobacco Use Types [...] on file Legal Sex Male 8:47 AM STATISTICAL SECRETARY Gender Identity Not on file Sexual Orientation Not on file 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 Protocols Used Back [id number] ISTICAL SECRETARY * Telephone Encounter - Paulette Gil RN - 09/26/2025 9:07 AM STATISTICAL SECRETARY Regarding: Severe back and right hip pain ----- Message from Daiana Berkowitz sent at 09/26/2025 8:55 AM STATISTICAL SECRETARY ----- Symptom Based Call Chief Complaint(s): Severe [...] message need to be routed? Yes-Action Needed ISTICAL SECRETARY documented in this encounter Plan of Treatment Upcoming Encounters Date Type Department Care Team (Late st Contact Info) Description 11/18/2025 9:30 AM STATISTICAL SECRETARY Hospital Encounter [address] [address] Madalyn Moreira MD [address] [place] [address] [address] [place] [address] 11/18/2025 9:30 AM STATISTICAL SECRETARY - 11/18/2025 10:00 AM STATISTICAL SECRETARY Surgery [address] [address] Madalyn Moreira MD [address] [place] [address] [address] [place] [id number] COLONOSCOPY Scheduled Procedures Name Priority Associated Diagnoses Date/Ti me COLONOSCOPY History of colonic polyps Family history of colon cancer 11/18/2025 9:30 AM STATISTICAL SECRETARY documented as of this encounter Visit Diagnoses Not on filedocumented in this encounter Care Teams Clamper Relationship Specialty Start Date End Date Carlos Hinojosa MD [address] [place] [address] PCP - General Family Medicine 12/20/21 Jj Scott MD [address] [place] [address] Referring Physician Ophthalmology 12/29/21 Cristi Cantu OD [address] [place] [address] Optometry 10/04/22 Marlene Freitas, OD [address] [place] [address] Optometry 11/09/23 Thomas Redman MD [address] [place] [address] Consulting Physician Anesthesiology 02/08/24 documented as of this encounter
--- OUTSIDE RECORDS SUMMARY | 2025-09-27 10:54 | XMS_ITS | Clinical Summary ---
Author Organization [facility] [address] Address [address] [place] [id number] Care Team Providers Care Wheel Molder Name Role Phone Carlos Hinojosa MD Primary Care Provider Jj Scott MD Unavailable Cristi Cantu OD Unavailable Marlene Freitas OD Unavailable [phone] Thomas Redman MD Unavailable Allergies Active Allergy Reactions Criticality Noted Date Comments Levofloxacin Pollen Extracts Eye irritation Low 12/29/2021 Ragweed Medications lancets [facility] [place] For home blood glucose monitoring, 1-3 [...] diabetes mellitus with renal manifestations, uncontrolled(250 .42) ([facility]) For use with blood glucose monitoring, 1-3 [...] Assessment & Plan (10/01/2024 9:33 AM SENIOR ELECTRICAL PROJECT MANAGER): A(n) yearly Medicare Annual Wellness Visit has [...] Assessment & Plan (11/09/2023 9:25 AM SENIOR ELECTRICAL PROJECT MANAGER): BMI Follow-up includes: nutrition counseling, exercise counseling, and education provided. Assessment & Plan (08/09/2023 9:23 AM CDT): BMI Follow-up includes: nutrition counseling, exercise counseling, and education provided. Assessment & Plan (10/04/2022 12:35 PM SENIOR ELECTRICAL PROJECT MANAGER): BMI Follow-up includes: nutrition counseling, exercise counseling and education provided. Hyperlipidemia associated with type 2 diabetes jose velarde 10/04/2022 Assessment & Plan (11/09/2023 9:26 AM SENIOR ELECTRICAL PROJECT MANAGER): A1c today Continuing atorvastatin No change on Tresiba Assessment & Plan (10/04/2022 12:35 PM SENIOR ELECTRICAL PROJECT MANAGER): Awaiting labs Continuing Tresiba at current dosage, [...] (02/02/2022): Added automatically from request for surgery [id number] Cataracts, bilateral 12/29/2021 Colon cancer screening 12/29/2021 Overview (12/29/2021): Added automatically from request for surgery [id number] Encounter for medical examination to establish c [...] had the RSV vaccine on 07/19 at [facility]. We discussed healthy lifestyle habits, educational material has been given. Medications reviewed, changes documented as per the medical record and discussed with patient along with risks vs benefits. 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 Resolved Problems Problem Noted Date Diagnosed Date Resolved Date Lumbar radiculopathy 02/02/2024 024 Neck pain 04/05/2022 02/21/2024 Non-smoker 10/29/2014 02/21/2024 Arthritis 10/29/2014 02/21/2024 Shortness of breath 10/29/2014 12/29/19 22 Osteoarthritis 10/29/2014 02/21/2024 Knee pain 10/02/2012 02/21/2024 Osteoarthritis of shoulder 05/31/2011 0 02/21/2024 Encounters Date Type Department Care Team Description 09/26/2025 Nurse Triage [facility] Primary Care at [address] [address] Carlos Hinojosa MD from Last 3 Months Immunizations Immunization Administration Dates Next Due Influenza, Quad, Adjuvantate d, Intramuscular 06/28/2023,08/16/2022,08/10/2021 Influenza, Quadrivalent, Melly l Culture-based MDCK, Preservative Free, Antibiotic Free, Intramuscular 08/20/2018,09/11/2017 Influenza, Quadrivalent, Spl it, Preservative Free, Intramuscular 08/25/2020,09/01/2016 Influenza, Trivalent, Adjuva nted, Intramuscular 08/04/2025,08/20/2024,08/29/2019 Influenza, Trivalent, IM (MDV) 08/25/2014,2012,10/17/2012 Influenza, Trivalent, Preser vative Free, Intramuscular 08/13/2015 Influenza, Unspecified 07/12/2023,08/16/2022 Recurrent Energy Sars-Cov-2 Bivalent V accination (12+ YRS) 08/16/2022 Pneumococcal Conjugate PCV 13 09/06/2015 Pneumococcal Polysaccharide PPV23 08/25/2020 RSV Vaccine, Pref, Recombina nt, Subunit, Adjuvanted, PF, IM (Arexvy) 07/05/2023 Tdap 07/12/2023,06/28/2023 ZOSTER LIVE 08/26/2014 ZOSTER Recombinant 12/19/2023,06/28/2023 Surgical History Surgery Date Site/Laterality Comments MT ARTHROSCOPY KNEE DIAGNOSTIC W/WO SYNOVIAL BX SPX 11/06/1979 - 11/05/1980 Arthroscopy Knee Left - (Added by TW Conv) MT ARTHROSCOPY KNEE DIAGNOSTIC W/WO SYNOVIAL BX SPX [...] file Legal Sex Male 8:47 AM SENIOR ELECTRICAL PROJECT MANAGER Gender Identity Not on file Sexual Orientation Not on file 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 [address] [place] [address] Madalyn Moreira MD [address] [place] [address] 11/18/2025 9:30 AM SENIOR ELECTRICAL PROJECT MANAGER - 11/18/2025 10:00 AM SENIOR ELECTRICAL PROJECT MANAGER Surgery [address] [address] Madalyn Moreira MD [address] [place] [address] [address] [place] [address] COLONOSCOPY Scheduled Procedures Name Priority Associated Diagnoses Date/Ti me COLONOSCOPY History of colonic polyps Family history of colon cancer 11/18/2025 9:30 AM SENIOR ELECTRICAL PROJECT MANAGER Health Maintenance Due Date Last Done Comments [...] C ANTIBODY Routine 12/29/2021 11:53 AM SENIOR ELECTRICAL PROJECT MANAGER Encounter for hepatitis C screening test for [...] MD LAB BLOOD ORDERABLES Final Result [facility] [id number] [address] Department [place] [address] * Albumin Creatinine Ratio, Urine [...] URINE ORDERABLES Final Result Performing Organization Address [facility] de Phone Number [facility] [address] [address] [place], [place] [id number] * (ABNORMAL) Hemoglobin A1c (05/01/2025 9:09 AM CDT) Hgb A1C 6.7(H) 4.0 - 5.6 % Estimated Average Glucose 146 mg/dL [facility] Comment: The ADA recommends reporting an estimated Average Glucose (eAG) with all Hemoglobin A1c results using the equation derived from a study of 507 normal and diabetic adults. Minority populations were underrepresented and children were not included. (Diabetes Care 31:3959-8948, 2008). The eAG is not equivalent to a fasting glucose. Blood 05/01/2025 9:09 AM CDT 05/01/2025 5:22 PM CDT Carlos Hinojosa MD LAB BLOOD ORDERABLES Final Result Performing Organization Address [facility] de Phone Number [facility] [address] [place] [address] * (ABNORMAL) Lipid panel (05/01/2025 9:09 AM [...] MD LAB BLOOD ORDERABLES Final Result [facility] [address] [facility] Department [place] [address] * DIABETES EYE EXAM (10/11/2023) SCRIBED DIABETIC [...] Final Result Performing Organization Address City/State/ZIP [place] Phone Number [facility] [address] Department [place] [address] * COLONOSCOPY (05/30/2022 8:28 AM CDT) Anatomical Region Laterality Modality Other Narrative Procedure Note Madalyn Moreira MD - 05/30/2022 8:28 AM CDT [facility] Patient Name: Manjeet Neri Procedure Date: 05/30/2022 8:28 AM Date of : 1955 Admit Type: Outpatient Age: 67 Gender: Male Attending MD: Madalyn Moreira M.D. Room: [facility] 1 Note Status: Finalized Patient [...] retrieved. Clip (MR conditional) was placed. Clipmanufacturer: Tixers. - Internal hemorrhoids. Recommendation: - Await pathology [...] under direct vision. The Pediatric Colonoscope PCF-H190L [id number] was introducedthrough the anus and advanced to [...] clip was successfully placed (MR conditional). Clip earth science teacher: Tixers. Therewas no bleeding at the end of the procedure. The rectum, sigmoid colon and descending colon appeared normal. One diverticulum noted in the descending colon. Internal hemorrhoids were found during retroflexion. The hemorrhoids were small. Electronically signed by Madalyn Moreira M.D. Madalyn Moreira M.D. 05/30/2022 9:50:21 AM Number of Addenda: 0 Note Initiated On: 05/30/2022 8:28 AM Procedure Code(s): --- Professional --- 91600, Colonoscopy, flexible; with removal of tumor(s), polyp(s), or other lesion(s) by snare technique 37891, 59, Colonoscopy, flexible; with biopsy, single or multiple Diagnosis Code(s): --- Professional --- Z80.0, Family history of malignant neoplasm of digestive organs K64.8, Other hemorrhoids D12.0, Benign neoplasm of cecum D12.3, Benign neoplasm of transverse colon (hepatic flexure orsplenic flexure) CPT copyright 2020 [employer]. All rights reserved. The codes documented in this report are preliminary and upon shooting gallery operator reviewmay be revised to meet current compliance requirements. Recognized by the [employer] for promoting quality [...] Munir Babcock M.D. AT: AT Report ID: [id number] Reading Location: [id number] Procedure Note Munir Babcock MD - 01/26/2022 [...] Munir Babcock M.D. AT: AT Report ID: [id number] Reading Location: [id number] us Carlos Hinojosa MD IMG US PROCEDURES Final Res ult * Hepatitis C antibody (12/29/2021 11:53 AM SENIOR ELECTRICAL PROJECT MANAGER) Hep C Ab Nonreactive Nonreactive [facility] [place] [...] 2020. Blood 12/29/2021 11:5 3 AM SENIOR ELECTRICAL PROJECT MANAGER 12/29/2021 6:03 PM SENIOR ELECTRICAL PROJECT MANAGER Carlos Hinojosa MD LAB MICROBIOLOGY - GENERAL ORDERABLES Final Result [facility] [address] [address] Department [place] [address] from Last 3 Months or Most Recently Relevant to Health Maintenance Insurance MEDICARE [facility] Address: [address] [address] MEDICARE [place] MEDICARE SUPPLEMENT Advance Directives For more information, please contact: [phone] * Full Code (Latest Code Status on File) Date Activated Date Inactivated Comments 05/30/2022 8:25 AM 05/30/2022 2:43 PM * Full Code Date Activated Date Inactivated Comments 05/30/2022 8:25 AM 05/30/2022 8:25 AM Care Teams Wheel Molder Relationship Specialty Start Date End Date Carlos Hinojosa MD [address] [place] [address] PCP - General Family Medicine 12/20/21 Jj Scott MD [address] [place] [address] Referring Physician Ophthalmology 12/29/21 Cristi Cantu OD [address] [place] [address] Optometry 10/04/22 Marlene Freitas, OD [address] [place] [address] Optometry 11/09/23 Thomas Redman MD [address] [place] [address] Consulting Physician Anesthesiology 02/08/24
--- NOTE | 2025-09-27 11:10 | ED_ITS ---
HPI - General Adult General Chief complaint: Extremity Injury, Lower Stated complaint: R hip pain Time Seen by Provider: 09/27/25 10:02 History of Present Illness HPI narrative: Patient is a 70-year-old gentleman who presents emergency department with chief complaint of back pain, and right hip pain. Patient reports that he has chronic back pain and reports that he has been walking a little different and S started having pain in his right hip area the patient states does not hurt when every initially gets out and reports that as he has been walking it becomes progressively more sore patient denies numbness or tingling denies bowel or bladder incontinence denies urinary retention patient denies saddle anesthesia. Related Data Allergies Allergy/AdvReac Type Severity Reaction Status Date / Time No Known Allergies Allergy Verified 09/27/25 09:38 Review of Systems Review of Systems: A 10 system review of systems was completed on the patient and is negative except for what is stated in the HPI. Nursing and ancillary documentation was reviewed. Exam Narrative: GENERAL: Well-appearing, well-nourished, and in no acute distress. HEAD: Normocephalic, atraumatic. EYES: PERRLA and EOMI. ENT: Nares clear, no rhinorrhea or epistaxis. Mucous membranes moist. NECK: Supple. CHEST: Clear to auscultation. No respiratory distress. HEART: Regular rate and rhythm. No murmur heard. Normal peripheral pulses. ABDOMEN: Soft, nontender, nondistended, normal active bowel sounds. EXTREMITIES: Normal range of motion. No edema. SKIN: Warm, dry, no rash. NEURO: No focal deficits. Alert and oriented x3. PSYCH: Normal mood and affect. Course Vital Signs Vital signs: Vital Signs Temperature 36.7 C 09/27/25 09:46 Pulse Rate 87 09/27/25 09:46 Respiratory Rate 18 09/27/25 09:46 Blood Pressure 146/92 H 09/27/25 09:46 Pulse Oximetry 98 09/27/25 09:46 Oxygen Delivery Room Air 09/27/25 09:46 Temperature 36.7 C 09/27/25 09:46 Pulse Rate 87 09/27/25 09:46 Respiratory Rate 18 09/27/25 09:46 Blood Pressure 146/92 H 09/27/25 09:46 Pulse Oximetry 98 09/27/25 09:46 Oxygen Delivery Room Air 09/27/25 09:46 Medical Decision Making Vital Signs Vital Signs: Vital Signs Temperature 36.7 C 09/27/25 09:46 Pulse Rate 87 09/27/25 09:46 Respiratory Rate 18 09/27/25 09:46 Blood Pressure 146/92 H 09/27/25 09:46 Pulse Oximetry 98 09/27/25 09:46 Oxygen Delivery Room Air 09/27/25 09:46 Temperature 36.7 C 09/27/25 09:46 Pulse Rate 87 09/27/25 09:46 Respiratory Rate 18 09/27/25 09:46 Blood Pressure 146/92 H 09/27/25 09:46 Pulse Oximetry 98 09/27/25 09:46 Oxygen Delivery Room Air 09/27/25 09:46 Discharge Plan Discharge Clinical Impression: Acute pain of right hip Patient Disposition: Home Condition: Stable Instructions: Antibiotic Form, Hip Pain (ED) Patient Language: [place] Island[place] Prescriptions: New diclofenac potassium 50 mg tablet 50 mg PO TID PRN (Reason: pain) Qty: 30 0RF prednisone 20 mg tablet 40 mg PO DAILY 5 Days Qty: 10 0RF methocarbamol 750 mg tablet 1,500 mg PO QID 3 Days Qty: 24 0RF No Action meclizine 25 mg tablet 25 mg PO TID PRN (Reason: dizziness) Qty: 30 0RF Follow-up/Referrals: Micaela,Carlos Scherer MD [Primary Care Provider, Unknown] Time of Disposition: :24
[2025-09-27 11:33] VITALS: BP 150/86; PULSE 72; RESP 20; O2SAT 95
== END 2025-09-27 11:34 | disposition home or self-care (01) ==
PROVIDERS: Emergency Provider Emergency Medicine; PCP Family Medicine
DX: M25.551 Pain in right hip (principal); M54.9 Dorsalgia, unspecified; G89.29 Other chronic pain
CPT/HCPCS: 72131; 73502; 96372; 99284; A9270; J1100; J1885